=== PATIENT | female | born 1975 | race Caucasian/White ===

== ENCOUNTER 2023-04-02 23:21 | Inpatient (IN) | payer OTHER, SELFPAY ==
--- NOTE | 2023-04-02 23:30 | ED.GENADULT ---
HPI - General Adult General Chief complaint: Psychiatric Symptoms Stated complaint: Crisis Time Seen by Provider: 04/02/23 23:30 Source: patient and EMS Mode of arrival: EMS Limitations: no limitations History of Present Illness HPI narrative: Patient is a 47 year old assigned female at with a history of substance abuse presenting to the emergency department today with suicidal ideation. Patient states that she told her disaster recovery specialist she has been thinking of jumping off a building over the last few days. Patient admits to alcohol use and abusing cough medicines. Patient denies any dizziness, lightheadedness, abdominal pain, nausea, vomiting, fever, chills, blurry vision, double vision, loss of vision, chest pain, difficulty breathing, shortness of breath, back pain, night sweats, pain with urination, increased urinary frequency, increased urinary urgency, blood in her urine or stool, syncope or a near syncopal episode, recent trauma or falls, bowel incontinence, bladder incontinence, bowel retention, bladder retention, or any other complaints at this time. Onset (ago): day(s) (3) Relieving factors: none Exacerbating factors: none Associated symptoms: denies other symptoms Treatments prior to arrival: none Related Data Allergies Allergy/AdvReac Type Severity Reaction Status Date / Time paroxetine [From PAXIL] Allergy Severe visual Unverified 05/09/20 17:57 disturbance rofecoxib [From VIOXX] Allergy Severe hallucinati Unverified 05/09/20 17:57 ons omeprazole [OMEPRAZOLE] Allergy Intermediate stomach Unverified 05/09/20 17:57 distress cyclobenzaprine Allergy Unknown HALLUCINATI Unverified 05/09/20 17:57 [From FLEXERIL] ON latex [Latex] Allergy Unknown RASH Unverified 05/09/20 17:57 Review of Systems Constitutional: Constitutional: Reports no additional constitutional complaints, Denies chills, Denies fever(s) and Denies night sweats Eyes: Eyes: Reports no additional eye complaints, Denies blurry vision, Denies change in vision, Denies diplopia, Denies eye discharge, Denies loss of vision and Denies eye pain ENT: Denies dizziness Cardiovascular: Cardiovascular: Reports no additional cardiovascular complaints, Denies chest pain, Denies lightheadedness, Denies Loss of Consciousness and Denies dyspnea Respiratory: Respiratory: Reports no additional respiratory complaints and Denies dyspnea Gastrointestinal: Gastrointestinal: Reports no additional gastrointestinal complaints, Denies abdominal pain, Denies melena, Denies hematochezia, Denies change in bowel habits and Denies change in stool character Genitourinary: Genitourinary: Denies hematuria, Denies urinary frequency, Denies dysuria, Denies urinary incontinence, Denies urinary hesitancy and Denies urinary urgency Musculoskeletal: Musculoskeletal: Reports no additional musculoskeletal complaints, Denies numbness and Denies tingling Neurologic: Denies dizziness, Denies loss of vision, Denies numbness and Denies tingling Psychiatric: Psychiatric: Reports no additional psychiatric complaints, Denies homicidal ideation and Reports suicidal ideation Endocrine: Endocrine: Reports no additional endocrine complaints Hematologic/Lymphatic: Hematologic/Lymphatic: Reports no additional hematologic/lymphatic complaints Allergic/Immunologic: Allergic/Immunologic: Reports no additional allergic/immunologic complaints PMFSH Past Medical History Attestation statement: The following information was validated with the patient. Source: old records reviewed and nursing notes reviewed Medical History Restless leg syndrome Vertebral compression fracture Social History Social History Alcohol intake: current Alcohol intake frequency: a few times a month Alcohol type: hard liquor Smoked in Last 30 Days: Yes Use of substances other than those prescribed or required for medical reasons: Yes Substance Use Type: Other Substance Use Type Other:: Cough medicine Substance Use Frequency: Chronic Longstanding Last Used Substance: Just Prior to Admission Advance Directives: No Advance Directives Information Provided: Yes Physical Exam ED Vital Signs: Vital Signs - 24 hr 04/02/23 23:31 04/02/23 23:50 Pulse Rate 97 97 Respiratory Rate 17 17 Blood Pressure 130/84 130/84 Pulse Oximetry 95 95 Oxygen Delivery Method Room Air Room Air BMI result Body Mass Index 32.6 Const General: cooperative, no acute distress, alert and awake Nutritional Appearance: well nourished Orientation/consciousness: patient oriented x3 Limitations: no limitations HENMT Head: Yes normal to inspection and Yes atraumatic Ears: hearing grossly normal bilaterally and external ears normal General nose exam: Normal external nose present, no nasal discharge noted and no epistaxis Face and sinus: Yes normal facial exam, No abrasion and No laceration Mouth: Normal oral and palatal mucosa present, no drooling and no muffled voice Eyes General: appearance normal, both eyes and all related structures Periorbital: periorbital findings normal Eyelids: Yes eyelids normal Conjunctivae: conjunctivae normal Pupils: Equal, round and reactive pupils present EOM: EOMs intact bilaterally Neck Neck: Yes normal visual inspection, Yes full ROM and Yes no lymphadenopathy Chest Chest palpation & inspection: normal inspection of the chest Resp Effort & Inspection: normal respiratory effort and able to speak in complete sentences GI Inspection: Yes normal to inspection Neuro General: patient oriented x3 and moves all extremities Cranial nerves: Yes Equal, round and reactive pupils present Cognition (Neuro): normal cognition Motor exam (neuro): 5/5 motor strength present throughout Sensory Exam: Normal double simultaneous stimulation for sensation Coordination: [id number] test normal Extrem General: Yes normal to inspection, Yes full ROM and Yes capillary refill normal Psych Appearance: grossly normal Mental Status: mental status grossly normal Affect: normal affect Attitude: cooperative Thought process: Normal thought process present Thought content: Normal thought content present Insight: Good insight present (Psych) Course Course Course Narrative: 0239: Informed by RN that she contacted poison control who recommended that the patient be placed on a residential monitor given the cough medicine abuse and her personal history of seizures. Patient will be moved back to the main ED and attached to a residential monitor with a sitter. Patient still awaits CARE team evaluation. Medical Decision Making Medical Decision Making [facility] Narrative: Patient is a 47 year old assigned female at with a history of substance use presenting to the emergency department today with suicidal ideation. Patient's physical exam was unremarkable. Patient's blood work was unremarkable. Patient's urine showed no acute process. Patient's EKG was unremarkable. I explained my physical exam findings as well as all test results to the patient. I answered all questions asked by the patient. Given patient's SI statements, patient will need to be evaluated by the CARE team. Patient is medically cleared at this time. Differential Diagnosis Differential Diagnoses: The differential diagnosis associated with the presentation includes Suicidal Depression Admission/Observation Consideration of admission/observation: Escalation of care including admission/observation considered Patient's disposition will be determined after CARE team evaluates the patient. Lab Data [facility] Lab Attestation statement: I reviewed the patient's lab results. My interpretation of these studies and their corresponding values is that they are grossly normal. 04/03/23 00:06 04/03/23 00:06 Labs: Lab Results 04/02/23 04/02/23 04/02/23 Range/Units 23:43 23:43 23:43 WBC (4.8-10.8) X10*3/uL RBC (4.20-5.50) X10*6/uL Hgb (12.0-16.0) g/dl Hct (37.0-47.0) % MCV (80.0-98.0) fL MCH (27.0-33.0) pg MCHC (31.0-35.0) g/dl RDW (11.0-16.0) % Plt Count (160-400) X10*3/uL MPV (9.4-12.3) fL Immature Gran % (Auto) (0.0-0.4) % Neut % (Auto) (45-73) % Lymph % (Auto) (20-40) % [place] % (Auto) (2-11) % Eos % (Auto) (0-4) % Baso % (Auto) (0-2) % Lymph # (Auto) (1.2-4.9) X10*3/uL [place] # (Auto) (0.1-1.2) X10*3/uL Eos # (Auto) (0.0-0.4) X10*3/uL Baso # (Auto) (0.0-0.2) X10*3/uL Abs Immat Gran (auto) (0.00-0.03) X10*3/uL Absolute Neuts (auto) (2.0-8.3) x10*3/uL Absolute Nucleated RBC (0.0-0.012) X10*3/uL Nucleated RBC % (auto) (0.0-0.2) /100WBC Sodium (135-145) mmol/L Potassium (3.3-5.1) mmol/L Chloride (96-108) mmol/L Carbon Dioxide (22-29) mmol/L Anion Gap (12-20) BUN (9-16) mg/dL Creatinine (0.5-1.4) mg/dL Estim Creat Clear Calc Estimated GFR Random Glucose (60-115) mg/dL Calcium (8.4-10.2) mg/dL Total Bilirubin (0.0-1.0) mg/dL AST (5-31) U/L ALT (0-31) U/L Alkaline Phosphatase (39-117) U/L Total Protein (6.5-8.0) g/dL Albumin (3.5-5.0) g/dL Urine Color Yellow Urine Appearance Clear Urine pH 5.5 (5.0-9.0) Ur Specific Hughson <= 1.005 (1.005-1.025) Urine Protein Negative (Neg-Trace) mg/dL Urine Glucose (UA) Negative (Negative) mg/dL Urine Ketones Negative (Negative) mg/dL Urine Blood Small (1+) H (Negative) Urine Nitrite Negative (Negative) Ur Leukocyte Esterase Trace H (Negative) Urine RBC 0-2 (0-2) /HPF Urine WBC 0-5 (0-5) /HPF Ur Squamous Epith Cells 3-5 (0-2) /HPF Urine Bacteria None Seen (None Seen) Hyaline Casts 0-2 (0-2) /LPF Urine Test NEGATIVE (NEGATIVE) Salicylates (15-30) mg/dL Urine Opiates Screen (Not Detect) Urine Fentanyl Screen (Not Detect) Acetaminophen (<30) mcg/mL Ur Barbiturates Screen (Not Detect) Ur Phencyclidine Scrn (Not Detect) Ur Amphetamines Screen (Not Detect) U Benzodiazepines Scrn (Not Detect) Urine Cocaine Screen (Not Detect) U Marijuana (THC) Screen (Not Detect) Ethyl Alcohol mg/dL COVID-19 (TEN) Negative (Negative) COVID-19 Clin Com See Note 04/02/23 04/03/23 04/03/23 Range/Units 23:43 00:06 00:06 WBC 10.4 (4.8-10.8) X10*3/uL RBC 4.54 (4.20-5.50) X10*6/uL Hgb 13.7 (12.0-16.0) g/dl Hct 40.4 (37.0-47.0) % MCV 89.0 (80.0-98.0) fL MCH 30.2 (27.0-33.0) pg MCHC 33.9 (31.0-35.0) g/dl RDW 13.4 (11.0-16.0) % Plt Count 333 (160-400) X10*3/uL MPV 9.7 (9.4-12.3) fL Immature Gran % (Auto) 0.3 (0.0-0.4) % Neut % (Auto) 48.5 (45-73) % Lymph % (Auto) 41.4 H (20-40) % [place] % (Auto) 7.5 (2-11) % Eos % (Auto) 1.6 (0-4) % Baso % (Auto) 0.7 (0-2) % Lymph # (Auto) 4.3 (1.2-4.9) X10*3/uL [place] # (Auto) 0.8 (0.1-1.2) X10*3/uL Eos # (Auto) 0.2 (0.0-0.4) X10*3/uL Baso # (Auto) 0.1 (0.0-0.2) X10*3/uL Abs Immat Gran (auto) 0.03 (0.00-0.03) X10*3/uL Absolute Neuts (auto) 5.0 (2.0-8.3) x10*3/uL Absolute Nucleated RBC 0.000 (0.0-0.012) X10*3/uL Nucleated RBC % (auto) 0.0 (0.0-0.2) /100WBC Sodium 140 (135-145) mmol/L Potassium 3.5 (3.3-5.1) mmol/L Chloride 111 H (96-108) mmol/L Carbon Dioxide 20 L (22-29) mmol/L Anion Gap 13 (12-20) BUN 13 (9-16) mg/dL Creatinine 1.07 (0.5-1.4) mg/dL Estim Creat Clear Calc 67.9 Estimated GFR 55 Random Glucose 97 (60-115) mg/dL Calcium 9.0 (8.4-10.2) mg/dL Total Bilirubin 0.2 (0.0-1.0) mg/dL AST 19 (5-31) U/L ALT 16 (0-31) U/L Alkaline Phosphatase 103 (39-117) U/L Total Protein 7.5 (6.5-8.0) g/dL Albumin 4.3 (3.5-5.0) g/dL Urine Color Urine Appearance Urine pH (5.0-9.0) Ur Specific Hughson (1.005-1.025) Urine Protein (Neg-Trace) mg/dL Urine Glucose (UA) (Negative) mg/dL Urine Ketones (Negative) mg/dL Urine Blood (Negative) Urine Nitrite (Negative) Ur Leukocyte Esterase (Negative) Urine RBC (0-2) /HPF Urine WBC (0-5) /HPF Ur Squamous Epith Cells (0-2) /HPF Urine Bacteria (None Seen) Hyaline Casts (0-2) /LPF Urine Test (NEGATIVE) Salicylates (15-30) mg/dL Urine Opiates Screen POSITIVE H (Not Detect) Urine Fentanyl Screen Not Detected (Not Detect) Acetaminophen (<30) mcg/mL Ur Barbiturates Screen Not Detected (Not Detect) Ur Phencyclidine Scrn Not Detected (Not Detect) Ur Amphetamines Screen Not Detected (Not Detect) U Benzodiazepines Scrn Not Detected (Not Detect) Urine Cocaine Screen Not Detected (Not Detect) U Marijuana (THC) Screen POSITIVE H (Not Detect) Ethyl Alcohol 29 mg/dL COVID-19 (TEN) (Negative) COVID-19 Clin Com 04/03/23 Range/Units 00:06 WBC (4.8-10.8) X10*3/uL RBC (4.20-5.50) X10*6/uL Hgb (12.0-16.0) g/dl Hct (37.0-47.0) % MCV (80.0-98.0) fL MCH (27.0-33.0) pg MCHC (31.0-35.0) g/dl RDW (11.0-16.0) % Plt Count (160-400) X10*3/uL MPV (9.4-12.3) fL Immature Gran % (Auto) (0.0-0.4) % Neut % (Auto) (45-73) % Lymph % (Auto) (20-40) % [place] % (Auto) (2-11) % Eos % (Auto) (0-4) % Baso % (Auto) (0-2) % Lymph # (Auto) (1.2-4.9) X10*3/uL [place] # (Auto) (0.1-1.2) X10*3/uL Eos # (Auto) (0.0-0.4) X10*3/uL Baso # (Auto) (0.0-0.2) X10*3/uL Abs Immat Gran (auto) (0.00-0.03) X10*3/uL Absolute Neuts (auto) (2.0-8.3) x10*3/uL Absolute Nucleated RBC (0.0-0.012) X10*3/uL Nucleated RBC % (auto) (0.0-0.2) /100WBC Sodium (135-145) mmol/L Potassium (3.3-5.1) mmol/L Chloride (96-108) mmol/L Carbon Dioxide (22-29) mmol/L Anion Gap (12-20) BUN (9-16) mg/dL Creatinine (0.5-1.4) mg/dL Estim Creat Clear Calc Estimated GFR Random Glucose (60-115) mg/dL Calcium (8.4-10.2) mg/dL Total Bilirubin (0.0-1.0) mg/dL AST (5-31) U/L ALT (0-31) U/L Alkaline Phosphatase (39-117) U/L Total Protein (6.5-8.0) g/dL Albumin (3.5-5.0) g/dL Urine Color Urine Appearance Urine pH (5.0-9.0) Ur Specific Hugh[place] (1.005-1.025) Urine Protein (Neg-Trace) mg/dL Urine Glucose (UA) (Negative) mg/dL Urine Ketones (Negative) mg/dL Urine Blood (Negative) Urine Nitrite (Negative) Ur Leukocyte Esterase (Negative) Urine RBC (0-2) /HPF Urine WBC (0-5) /HPF Ur Squamous Epith Cells (0-2) /HPF Urine Bacteria (None Seen) Hyaline Casts (0-2) /LPF Urine Test (NEGATIVE) Salicylates < 5.0 L (15-30) mg/dL Urine Opiates Screen (Not Detect) Urine Fentanyl Screen (Not Detect) Acetaminophen < 17 (<30) mcg/mL Ur Barbiturates Screen (Not Detect) Ur Phencyclidine Scrn (Not Detect) Ur Amphetamines Screen (Not Detect) U Benzodiazepines Scrn (Not Detect) Urine Cocaine Screen (Not Detect) U Marijuana (THC) Screen (Not Detect) Ethyl Alcohol mg/dL COVID-19 (TEN) (Negative) COVID-19 Clin Com Independent Interpretation I performed an independent interpretation of an: EKG Interpretation: Vent. Rate : 106 BPM ? ? Atrial Rate : 106 BPM ?? P-R Int : 168 ms? QRS Dur : 088 ms ? ? QT Int : 374 ms ? ? ? P-R-T Axes : 054 086 015 degrees ?? QTc Int : 496 ms ? Sinus tachycardia T wave abnormality, consider inferior ischemia Abnormal ECG When compared with ECG of 03-JUL-2019 15:32, T wave inversion now evident in Inferior leads DD/ 0015 Independent Historian Clinical information obtained from an independent historian. History obtained from or confirmed by: EMS (EMS provided additional history and confirmed the history provided by the patient.) Critical Care Time Critical Care Time Critical Care Time: Yes Total Critical Care Time: 40 Attestation: I spent 40 minutes of Critical Care Time with this patient. This does not include time spent on separately reported billable procedures. Discharge Plan Discharge Clinical Impression: Suicidal ideation Patient Disposition: Still a Patient Interventions: Polk-Suicide Risk Severity Scale Last Done: 04/02/23 23:41
[2023-04-02 23:31] VITALS: BP 130/84; BP 145/86; PULSE 105; PULSE 97; RESP 17; O2SAT 95; O2SAT 98; BMI 32.6
--- NOTE | 2023-04-02 23:37 | ECG_ITS ---
Test Reason : MED CLEARANCE Blood Pressure : / mmHG Vent. Rate : 106 BPM Atrial Rate : 106 BPM P-R Int : 168 ms QRS Dur : 088 ms QT Int : 374 ms P-R-T Axes : 054 086 015 degrees QTc Int : 496 ms Sinus tachycardia T wave abnormality, consider inferior ischemia Abnormal ECG When compared with ECG of 03-JUL-2019 15:32, T wave inversion now evident in Inferior leads Referred By: Allyson Aguilera Electronically Signed By:Aneesh Espinoza
[2023-04-02 23:50] VITALS: BP 130/84; PULSE 97; RESP 17; O2SAT 95
[2023-04-02 23:55] LABS: Appearance Urine Clear; Color Urine Yellow; Glucose Urine UA Negative (Negative); Leukocyte Esterase Urine Trace (Negative); Nitrite Urine Negative (Negative); PH 5.5 (5.0-9.0); Specific Gravity - Urine <= 1.005 (1.005-1.025); UMIC TRIGGER UA YES; Urine Blood Small (1+) (Negative); Urine Ketones Negative (Negative); Urine Protein Negative (Neg-Trace)
--- NOTE | 2023-04-02 23:55 | PC.NURSE ---
Pt BIBA alert and oriented x3. States she reported SI with plan recovery coordinator and now is reporting HI as well. longstanding chronic use of cough suppressants, currently is in treatment through a program at [facility]. Pt states she consumed 4 1/2 boxes of dexmethrophan over the day. Pt changed over in the hospital attire, belongings checked and secured in pod locker, 15 minutes checks initiated. Labs drawn, ekg completed. vital signs stable. Patient oriented to milieu resting quietly in bed 7 area.
[2023-04-02 23:56] LABS: UPreg QC Valid YES; Urine Pregnancy NEGATIVE (NEGATIVE)
[2023-04-03 00:03] LABS: Amphetamine Screen Urine Not Detected (Not Detect); Barbiturates, Urine Not Detected (Not Detect); Benzodiazepines Screen Urine Not Detected (Not Detect); Cannabinoid Screen Urine POSITIVE (Not Detect); Cocaine Screen Urine Not Detected (Not Detect); Fentanyl, urine Not Detected (Not Detect); Opiate Screen Urine POSITIVE (Not Detect); Phencyclidine Screen Urine Not Detected (Not Detect)
[2023-04-03 00:08] LABS: Bacteria Urine None Seen (None Seen); Hyaline Casts Urine 0-2 /LPF (0-2); RBC Urine 0-2 /HPF (0-2); WBC Urine 0-5 /HPF (0-5)
[2023-04-03 00:13] LABS: MANUAL DIFF FLAG NO
--- OUTSIDE RECORDS SUMMARY | 2023-04-03 00:13 | XMS_ITS | Continuity of Care Document ---
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 Date(s): 08/12/21 - 08/13/[address] [address]- Discharge Disposition: Transfer to [facility] Facility Attending Physician: Madhu Frazier MD Admitting Physician: Madhu Frazier MD Referring Physician: Not on Staff, Referring MD Allergies, Adverse Reactions, Alerts Substance Reaction Severity Status Flexeril Active Vioxx Active Latex Active Other Food Allergy 1 Active 1green pepper Immunizations Not Given Vaccine Date Status Refusal Reason pneumococcal 23-valent vaccine 08/11/14 Not Given Patient Refuses influenza virus vaccine, inactivated 08/11/14 Not Given Patient Refuses Medications Advair Diskus 100 mcg-50 mcg inhalation powder 1, puffs, Inhalation, 2 times a day, # 1 kit, Refills 0, Tot. Refills 0, Maintenance, 07/28/21 11:11:00 EST, Inhaler, Route to Pharmacy Electronically, [id number], [email or web address] ([facility]), 152, cm, 07/28/21 8:23:00 E... Start Date: 07/28/21 Status: Ordered gabapentin 300 mg oral capsule 300 mg, 1, capsule, By Mouth, 3 times a day, # 90 capsule, Refills 0, Tot. Refills 0, Maintenance, 07/28/21 11:12:00 EST, Route to Pharmacy Electronically, [facility] [id number] ([facility]), Partial fill upon patient request if the prescription is for... Start Date: 07/28/21 Status: Ordered gabapentin 300 mg oral capsule 300 mg, Capsule, By Mouth, 08/12/21 21:00:00 EST Start Date: 08/12/21 Stop Date: 08/12/21 Status: Completed gabapentin 300 mg oral capsule 300 mg, Capsule, By Mouth, 08/13/21 9:00:00 EST Start Date: 08/13/21 Stop Date: 08/13/21 Status: Completed lamotrigine 25 mg oral tablet 25 mg, 1, tablet, By Mouth, Daily at bedtime, # 30 tablet, Refills 0, Tot. Refills 0, Maintenance, 07/28/21 11:12:00 EST, Route to Pharmacy Electronically, [email or web address] ([facility]), Partial fill upon patient request if the prescription is for... Start Date: 07/28/21 Status: Ordered LORazepam 1 mg oral tablet 1 tablet = 1 mg, By Mouth, Daily, PRN as needed for anxiety, # 14 tablet, 0 Refills, Maintenance, 07/28/21 11:12:00 EST, Tablet, [facility] [id number] ([facility]), Partial fill upon patient request ifthe prescription is for a schedule II opioid drug.,... Start Date: 07/28/21 Status: Ordered montelukast 10 mg oral tablet 10 mg, 1, tablet, By Mouth, Daily, # 30 tablet, Refills 0, Tot. Refills 0, Maintenance, 07/28/21 11:12:00 EST, Route to Pharmacy Electronically, [email or web address] ([facility]), Partial fill upon patient request if the prescription is for a schedule... Start Date: 07/28/21 Status: Ordered olanzapine 10 mg oral tablet 5 mg, 0.5, tablet, By Mouth, Daily, # 15 tablet, Refills 0, Tot. Refills 0, Maintenance, 07/28/21 13:57:00 EST, Route to Pharmacy Electronically, [facility] [id number] ([facility]), Partial fill upon patient request if the prescription is for a schedule... Start Date: 07/28/21 Status: Ordered propranolol 20 mg oral tablet 20 mg, 1, tablet, By Mouth, 3 times a day, # 90 tablet, Refills 0, Tot. Refills 0, Maintenance, 07/28/21 11:12:00 EST, Route to Pharmacy Electronically, [facility] [id number] ([facility]), Partial fillupon patient request if the prescription is for a s... Start Date: 07/28/21 Status: Ordered propranolol 20 mg oral tablet 20 mg, Tablet, By Mouth, 08/13/21 9:00:00 EST Start Date: 08/13/21 Stop Date: 08/13/21 Status: Completed Vitamin D3 1000 intl units oral tablet, chewable 1 tablet = 25 mcg, Chew, Daily, # 30 tablet, 0 Refills, Maintenance, 07/28/21 11:11:00 EST, Chew Tablet, [facility] [id number] ([facility]), Partial fill upon patient request if the prescription is fora schedule II opioid drug., 152, cm, 07/28/21 8:23:... Start Date: 07/28/21 Status: Ordered Problem List Condition Effective Dates Status Health Status Inform ant Vertebral compression fracture(Confirmed) 1 Active Obese class II(Confirmed) Active Restless leg syndrome(Confirmed) Active Urinary retention(Confirmed) Active 1T 7 and T12 traumatic Vital Signs Most recent to oldest [Reference Range]: 1 2 3 Height 158 cm (08/12/21 8:59 PM) 158 cm (08/12/21 5:28 PM) 158 cm (08/12/21 2:27 PM) Weight 94 kg (08/12/21 8:59 PM) 94 kg (08/12/21 5:28 PM) 94 kg (08/12/21 2:27 PM) Oxygen Saturation [94-100 %] 97 % (08/12/21 8:59 PM) 100 % (08/12/21 5:28 PM) 98 % (08/12/21 2:27 PM) Pulse Rate [55-90 bpm] 93 bpm *H* (08/13/21 8:51 AM) 97 bpm *H* (08/12/21 8:59 PM) 89 bpm (08/12/21 5:28 PM) Body Mass Index [18.5-24.99] 37.65 *>HHI* (08/12/21 8:59 PM) 37.65 *>HHI* (08/12/21 5:28 PM) Blood Pressure [90-138/55-84 mm Hg] 128/90mm Hg (08/13/21 8:51 AM) 126/84mm Hg (08/12/21 8:59 PM) 144/92mm Hg *H* (08/12/21 5:28 PM) Respiratory Rate [16-30 br/min] 16 br/min (08/13/21 8:50 AM) 16 br/min (08/12/21 9:52 PM) 18 br/min (08/12/21 8:52 PM) Temperature [96.8-100.4 DegF] 98.2 DegF (08/13/21 8:51 AM) 97.6 DegF (08/12/21 8:59 PM) 98.8 DegF (08/12/21 5:28 PM) Mode of Delivery (Oxygen) Room air (08/12/21 5:28 PM) Room air (08/12/21 2:27 PM) Blood pressure sites Arm, left (08/12/21 5:28 PM) Arm, right (08/12/21 2:27 PM) Temperature Route Oral (08/12/21 8:59 PM) Oral (08/12/21 5:28 PM) Oral (08/12/21 2:27 PM) Dry Weight 94 kg (08/12/21 8:59 PM) 94 kg (08/12/21 5:28 PM) 94 kg (08/12/21 2:27 PM) Weight Obtained Via Patient/family state d (08/12/21 2:27 PM) Dry Weight Obtained Via Patient/family s tated (08/12/21 2:27 PM) Social History Social History Type Response Smoking Status Former smoker entered on: 08/10/14 Sex
--- OUTSIDE RECORDS SUMMARY | 2023-04-03 00:13 | XMS_ITS | Continuity of Care Document ---
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 Start Date: 07/28/21 Status: Ordered gabapentin 100 mg oral capsule 300 mg, Capsule, By Mouth, 07/28/21 9:00:00 EST Start Date: 07/28/21 Stop Date: 07/28/21 Status: Completed gabapentin 100 mg oral capsule 300 mg, Capsule, By Mouth, 07/28/21 15:00:00 EST Start Date: 07/28/21 Stop Date: 07/28/21 Status: Completed gabapentin 300 mg oral capsule 300 mg, 1, capsule, By Mouth, 3 times a day, # 90 capsule, Refills 0, Tot. Refills 0, Maintenance, 07/28/21 11:12:00 EST, Route to Pharmacy Electronically, [facility] ([place]), Partial fill upon patient request if the prescription is for... Start Date: 07/28/21 Status: Ordered lamotrigine 25 mg oral tablet 25 mg, 1, tablet, By Mouth, Daily at bedtime, # 30 tablet, Refills 0, Tot. Refills 0, Maintenance, 07/28/21 11:12:00 EST, Route to Pharmacy Electronically, [facility] ([place]), Partial fill upon patient request if the prescription is for... Start Date: 07/28/21 Status: Ordered LORazepam 1 mg oral tablet 1 tablet = 1 mg, By Mouth, Daily, PRN as needed for anxiety, # 14 tablet, 0 Refills, Maintenance, 07/28/21 11:12:00 EST, Tablet, [facility] [id number] ([place]), Partial fill upon patient request ifthe prescription is for a schedule II opioid drug.,... Start Date: 07/28/21 Status: Ordered montelukast 10 mg oral tablet 10 mg, 1, tablet, By Mouth, Daily, # 30 tablet, Refills 0, Tot. Refills 0, Maintenance, 07/28/21 11:12:00 EST, Route to Pharmacy Electronically, [facility] [id number] ([place]), Partial fill upon patient request if the prescription is for a schedule... Start Date: 07/28/21 Status: Ordered olanzapine 10 mg oral tablet 5 mg, 0.5, tablet, By Mouth, Daily, # 15 tablet, Refills 0, Tot. Refills 0, Maintenance, 07/28/21 13:57:00 EST, Route to Pharmacy Electronically, [facility] [id number] ([place]), Partial fill upon patient request if the prescription is for a schedule... Start Date: 07/28/21 Status: Ordered propranolol 20 mg oral tablet 20 mg, 1, tablet, By Mouth, 3 times a day, # 90 tablet, Refills 0, Tot. Refills 0, Maintenance, 07/28/21 11:12:00 EST, Route to Pharmacy Electronically, [facility] [id number] ([place]), Partial fillupon patient request if the prescription is for a s... Start Date: 07/28/21 Status: Ordered propranolol 20 mg oral tablet 20 mg, Tablet, By Mouth, 07/27/21 21:00:00 EST Start Date: 07/27/21 Stop Date: 07/27/21 Status: Completed propranolol 20 mg oral tablet 20 mg, Tablet, By Mouth, 07/28/21 15:00:00 EST Start Date: 07/28/21 Stop Date: 07/28/21 Status: Completed Vitamin D3 1000 intl units oral tablet, chewable 1 tablet = 25 mcg, Chew, Daily, # 30 tablet, 0 Refills, Maintenance, 07/28/21 11:11:00 EST, Chew Tablet, [facility] [id number] ([place]), Partial fill upon patient request if the [...] oldest [Reference Range]: 1 2 3 Height 152 cm (07/28/21 8:23 AM) 152 cm (07/27/21 6:19 PM) 152 cm (07/27/21 8:53 AM) Weight 93.4 kg (07/25/21 3:07 PM) 89.5 kg (07/18/21 2:17 PM) 88.2 kg (07/17/21 4:22 PM) Oxygen Saturation [94-100 %] 98 % (07/28/21 8:23 AM) 98 % (07/27/21 6:19 PM) 99 % (07/27/21 8:53 AM) Pulse Rate [55-90 bpm] 105 bpm *H* (07/28/21 3:00 PM) 99 bpm *H* (07/28/21 8:23 AM) 83 bpm (07/27/21 9:59 PM) Body Mass Index [18.5-24.99] 38.74 *>HHI* (07/18/21 2:17 PM) 38.18 *>HHI* (07/17/21 4:22 PM) 38.18 *>HHI* (07/17/21 8:54 AM) Blood Pressure [90-138/55-84 mm Hg] 136/90mm Hg (07/28/21 3:00 PM) 129/89mm Hg (07/28/21 8:23 AM) 105/76mm Hg (07/27/21 9:59 PM) Respiratory Rate [16-30 br/min] 16 br/min (07/28/21 3:00 PM) 18 br/min (07/28/21 8:46 AM) 18 br/min (07/28/21 8:28 AM) Temperature [96.8-100.4 DegF] 96.6 DegF *L* (07/28/21 8:23 AM) 96.8 DegF (07/27/21 6:19 PM) 97.3 DegF (07/27/21 8:53 AM) Mode of Delivery (Oxygen) Room air (07/28/21 8:23 AM) Room air (07/27/21 6:19 PM) Room air (07/27/21 8:53 AM) Blood pressure sites Arm, left (07/28/21 8:23 AM) Arm, right (07/27/21 6:19 PM) Arm, left (07/27/21 8:53 AM) Temperature Route Temporal (07/28/21 8:23 AM) Temporal (07/27/21 6:19 PM) Temporal (07/27/21 8:53 AM) Dry Weight 89.5 kg (07/18/21 2:17 PM) 88.2 kg (07/17/21 4:22 PM) 88.2 kg (07/17/21 8:54 AM) Weight Obtained Via Standing scale (07/25/21 3:07 PM) Standing scale (07/16/21 2:02 PM) Sensory deficits None (07/18/21 2:17 PM) Social History Social History Type Response Smoking Status Former smoker entered on: 08/10/14 Sex
[2023-04-03 00:15] LABS: COVID-19 Test Negative (Negative); IDNOW Serial# 6674DD1D
[2023-04-03 00:15] LABS: Basophils Absolute Auto 0.1 X10*3/uL (0.0-0.2); Basophils Percent Auto 0.7 % (0-2); Eosinophils Absolute Auto 0.2 X10*3/uL (0.0-0.4); Eosinophils Percent Auto 1.6 % (0-4); Hematocrit 40.4 % (37.0-47.0); Hemoglobin 13.7 g/dl (12.0-16.0); Imm Gran Abs Auto 0.03 X10*3/uL (0.00-0.03); Imm Gran Pct Auto 0.3 % (0.0-0.4); Lymphocytes Absolute Auto 4.3 X10*3/uL (1.2-4.9); Lymphocytes Percent Auto 41.4 % (20-40); Mean Corpuscular HGB Conc 33.9 g/dl (31.0-35.0); Mean Corpuscular Hemoglobin 30.2 pg (27.0-33.0); Mean Platelet Volume 9.7 fL (9.4-12.3); Monocytes Absolute Auto 0.8 X10*3/uL (0.1-1.2); Monocytes Percent Auto 7.5 % (2-11); Neutrophils Percent Auto 48.5 % (45-73); Platelet Count 333 X10*3/uL (160-400); Red Blood Count 4.54 X10*6/uL (4.20-5.50); Red Cell Distribution Width 13.4 % (11.0-16.0); White Blood Count 10.4 X10*3/uL (4.8-10.8)
[2023-04-03 00:33] LABS: Acetaminophen LAB < 17 mcg/mL (<30); Salicylate < 5.0 mg/dL (15-30)
[2023-04-03 00:35] LABS: Alanine Aminotransferase 16 U/L (0-31); Albumin Level 4.3 g/dL (3.5-5.0); Alkaline Phosphatase 103 U/L (39-117); Anion Gap 13 (12-20); Aspartate Amino Transferase 19 U/L (5-31); Bilirubin Total 0.2 mg/dL (0.0-1.0); Blood Urea Nitrogen 13 mg/dL (9-16); Carbon Dioxide 20 mmol/L (22-29); Chloride 111 mmol/L (96-108); Creatinine Clr Calc Pharmacy 67.9; Estimated Glomerular Filt Rate 55; Ethanol 29 mg/dL; Glucose Random 97 mg/dL (60-115); Potassium 3.5 mmol/L (3.3-5.1); Sodium 140 mmol/L (135-145); Total Protein 7.5 g/dL (6.5-8.0)
--- NOTE | 2023-04-03 01:30 | PC.NURSE ---
Patient reporting she doesn't feel well. states although she is a chronic cough suppressant user, she does not feel that same today and endorsing severe JIMENEZ and states history of grand mal seizures. PT mental status differs from when pt first arrived ,pupil moderately dilated, falling asleep mid conversation and unsteady on feet during walk to bed 5, pt slide to ground multiple and pt lacking depth perception. Pt breathing normally and in no acute distress.
--- NOTE | 2023-04-03 02:25 | MHC.CARE ---
Pt is currently uninterviewable. Care team will assess her in the morning.
--- NOTE | 2023-04-03 02:41 | PC.NURSE ---
Discussed case with poison control staff, Ayana, she recommends to closely monitor pt and allow her to sleep off the cough suppressant intake- if she back to baseline in the morning she can be cleared. If pt starts to get severely agitation or seizure activity administer, fluids and give benzos. Ayana recommended that the PT be kept on key bed installer and implement seizure precautions. Provider aware of recommendations and charge nurse notified.
[2023-04-03 03:39] VITALS: BP 114/70; PULSE 88; O2SAT 97
--- NOTE | 2023-04-03 06:21 | PC.NURSE ---
Spoke with Ayana from poison control. Pt SR in 80's, A & O x3. cleared to go back to pod.
--- NOTE | 2023-04-03 08:11 | PHA.MEDREC ---
Pharmacy Consult ? Medication Reconciliation Pharmacy has completed the medication reconciliation. Spoke to patient to confirm meds.
--- NOTE | 2023-04-03 10:26 | MHC.EDTECH ---
Patient belongings are in the washer/dryer closet. SG
[2023-04-03] MEDS: Nicotine 21 MG PATCH.TD24 TRANSDERMA (12:01)
[2023-04-03 17:04] VITALS: BP 107/72; PULSE 76; RESP 18; TEMP 36.1; O2SAT 95
--- NOTE | 2023-04-03 18:14 | PC.NURSE ---
PT'S SALES ACCOUNT EXECUTIVE (AVIS LOPEZ [phone]) CALLED AND LEFT HIS NUMBER.
--- NOTE | 2023-04-03 23:35 | PC.NURSE ---
Pt ambulated with steady gait to the restroom. Plan of care ongoing.
[2023-04-04 11:39] VITALS: BP 127/90; PULSE 97; RESP 19; TEMP 36.4; O2SAT 98
[2023-04-04] MEDS: Loratadine 10 MG TABLET PO (12:19)
[2023-04-04] MEDS: LORazepam 1 MG TABLET PO (12:19)
[2023-04-04] MEDS: Topiramate 25 MG TABLET PO (12:19)
[2023-04-04] MEDS: Gabapentin 300 MG CAPSULE PO (12:19)
[2023-04-04] MEDS: DULoxetine HCl 60 MG CAPSULE.DR PO (12:19)
[2023-04-04] MEDS: Propranolol HCL 20 MG TABLET PO ×2 (12:19→20:30)
[2023-04-04] MEDS: Dicyclomine HCl 10 MG CAPSULE 20 MG PO ×3 (12:19→20:30)
[2023-04-04] MEDS: Nicotine Polacrilex 2 MG GUM BUCCAL (12:54)
--- NOTE | 2023-04-04 15:10 | MHC.CARE ---
RAD team conducted an [facility] bed search but unfortunately the facilities that had beds available would not give a definitive answer on her referral being reviewed. Her bed search is now exhausted. RAD will follow up in the morning to confirm acceptance to M3 pending a female discharge on the unit.
--- NOTE | 2023-04-04 19:57 | PC.NURSE ---
assumed care of patient at 1900 pt resting comfortably on stretcher in no apparent distress. will ctm
[2023-04-04] MEDS: Gabapentin 400 MG CAPSULE PO (20:31)
[2023-04-04 20:34] VITALS: BP 115/85; PULSE 85; RESP 16; TEMP 36.6; O2SAT 97
--- NOTE | 2023-04-04 20:35 | PC.NURSE ---
pt took home bed time medications with no issues. sleeping comfortably on stretcher in no apparent distress will ctm . needs met and pt offers no current complaints.
[2023-04-05 05:52] VITALS: BP 117/84; PULSE 80; RESP 17; TEMP 36.6; O2SAT 97
[2023-04-05] MEDS: Dicyclomine HCl 10 MG CAPSULE 20 MG PO ×4 (10:38→21:15)
[2023-04-05] MEDS: Gabapentin 300 MG CAPSULE PO (10:39)
[2023-04-05] MEDS: DULoxetine HCl 60 MG CAPSULE.DR PO (10:39)
[2023-04-05] MEDS: Topiramate 25 MG TABLET PO (10:39)
[2023-04-05] MEDS: LORazepam 1 MG TABLET PO (10:39)
[2023-04-05] MEDS: Loratadine 10 MG TABLET PO (10:39)
[2023-04-05] MEDS: Propranolol HCL 20 MG TABLET PO ×2 (10:39→21:17)
[2023-04-05] MEDS: Cholecalciferol (Vitamin D3) 25 MCG TABLET PO (10:40)
[2023-04-05 10:47] VITALS: BP 105/81; PULSE 75; RESP 16; O2SAT 98
[2023-04-05] MEDS: Nicotine Polacrilex 2 MG GUM BUCCAL (14:04)
[2023-04-05 16:03] VITALS: BP 137/98; PULSE 78; RESP 17; TEMP 36.3; O2SAT 96
--- NOTE | 2023-04-05 18:47 | PC.ADMIT ---
Patient is an alert and oriented 47yo female who was admitted from our ED where she was evaluated after she overdosed on a large amount of Dextromethorphan and had called her motor coach tour operator and made suicidal statements. Patient reports recent suicidal ideation with a plan to jump off of a parking garage. Patient reported that she got as far as leaving her home a week ago for the bus to go jump off the garage after writing a suicide note. Patient states history of significant suicide attempts, and reports feeling concerned now because her suicidal ideation is different than previously. She states that the SI comes in waves that are intense and that she doesn't feel as though she has associated depression. Patient denies depression (0/10) and complains of anxiety (4/10) which she states is baseline, pt denies current si, hi, or avh and believes she would be able to communicate with staff if she felt unsafe. Patient states that she has tried many times to go to rehab for her abuse of OTC medication but has been unable to find a facility that will take her.
[2023-04-05 20:05] VITALS: BP 108/65; PULSE 72; RESP 16; TEMP 36.6; O2SAT 98
[2023-04-05] MEDS: Gabapentin 400 MG CAPSULE PO (21:16)
[2023-04-05] MEDS: modafiniL 100 MG TABLET 200 MG PO (21:16)
[2023-04-06 09:17] LABS: Estimated Average Glucose 105 mg/dL; Hemoglobin A1c % 5.3 %
[2023-04-06 09:56] LABS: Alanine Aminotransferase 12 U/L (0-31); Albumin Level 3.6 g/dL (3.5-5.0); Alkaline Phosphatase 104 U/L (39-117); Anion Gap 11 (12-20); Aspartate Amino Transferase 11 U/L (5-31); Bilirubin Total 0.1 mg/dL (0.0-1.0); Blood Urea Nitrogen 17 mg/dL (9-16); Calcium 9.3 mg/dL (8.4-10.2); Carbon Dioxide 24 mmol/L (22-29); Chloride 107 mmol/L (96-108); Cholesterol 228 mg/dL; Creatinine Clr Calc Pharmacy 88.7; Estimated Glomerular Filt Rate > 60; Glucose Fasting 120 mg/dL (60-99); HDL Cholesterol 39 mg/dL; LDL Cholesterol Calculated 126 mg/dl; Potassium 4.1 mmol/L (3.3-5.1); Sodium 138 mmol/L (135-145); Total Protein 6.5 g/dL (6.5-8.0); Triglycerides 319 mg/dL
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
[2023-04-06 10:16] LABS: Folate 8.7 ng/mL (> or = 4.0); Free T4 (Free Thyroxine) 0.76 ng/dL (0.71-1.85); Thyroid Stimulating Hormone 1.19 uIU/mL (0.32-4.0); Vitamin B12 312 pg/mL (200-900)
[2023-04-06] MEDS: Cholecalciferol (Vitamin D3) 25 MCG TABLET PO (10:30)
[2023-04-06] MEDS: Topiramate 25 MG TABLET PO (10:30)
[2023-04-06] MEDS: Dicyclomine HCl 10 MG CAPSULE 20 MG PO (10:30)
[2023-04-06] MEDS: DULoxetine HCl 60 MG CAPSULE.DR PO (10:30)
[2023-04-06] MEDS: Loratadine 10 MG TABLET PO (10:30)
[2023-04-06] MEDS: Gabapentin 300 MG CAPSULE PO (10:30)
[2023-04-06] MEDS: Propranolol HCL 20 MG TABLET PO ×2 (10:30→21:44)
[2023-04-06] MEDS: modafiniL 100 MG TABLET 200 MG PO ×2 (10:30→21:44)
[2023-04-06 11:21] VITALS: BP 111/68; PULSE 69; RESP 20; TEMP 36.7; O2SAT 99
[2023-04-06] MEDS: Fluticasone/Vilanterol 100/25 BLST.W.DEV 1 PUFF INHALE (11:44)
[2023-04-06] MEDS: Fluticasone Propionate Nasal 16 GM SPRAY 2 SPRAY NOSTRIL-B (11:44)
[2023-04-06] MEDS: Acetaminophen 325 MG TABLET 650 MG PO (19:32)
[2023-04-06] MEDS: Nicotine Polacrilex 2 MG GUM BUCCAL (19:33)
[2023-04-06 21:44] VITALS: BP 119/77; PULSE 92; RESP 16; TEMP 36.2; O2SAT 99
[2023-04-06] MEDS: Gabapentin 400 MG CAPSULE PO (21:44)
[2023-04-07] MEDS: Loratadine 10 MG TABLET PO (08:49)
[2023-04-07] MEDS: modafiniL 100 MG TABLET 200 MG PO ×2 (08:49→20:51)
[2023-04-07] MEDS: Propranolol HCL 20 MG TABLET PO ×2 (08:50→20:51)
[2023-04-07] MEDS: Cholecalciferol (Vitamin D3) 25 MCG TABLET PO (08:50)
[2023-04-07] MEDS: DULoxetine HCl 60 MG CAPSULE.DR PO (08:50)
[2023-04-07] MEDS: Gabapentin 300 MG CAPSULE PO (08:50)
[2023-04-07] MEDS: Fluticasone Propionate Nasal 16 GM SPRAY 2 SPRAY NOSTRIL-B (08:52)
[2023-04-07] MEDS: Fluticasone/Vilanterol 100/25 BLST.W.DEV 1 PUFF INHALE (08:52)
[2023-04-07] MEDS: Nicotine Polacrilex 2 MG GUM BUCCAL ×4 (09:00→23:44)
[2023-04-07] MEDS: Acetaminophen 325 MG TABLET 650 MG PO ×2 (12:08→18:59)
[2023-04-07 12:28] VITALS: BP 119/87; PULSE 72; RESP 20; TEMP 36.6; O2SAT 98
--- NOTE | 2023-04-07 15:36 | P.PNPSI_ITS ---
Subjective Subjective Date of Service: 04/07/23 Reason For Visit: SI/ attempt Interim History: calm, cooperative. reporting JIMENEZ. some feelings of SI and depression this morning. asks to end interview early due to brain fog and JIMENEZ. denies feeling like she is in withdrawal. Mental Status Exam Mental Status Exam Narrative: adequately dressed and groomed. cooperative. no PMA/PMR. speech nml rate, amount, loudness, tone, latency. thoughts linear and logical. affect constricted, normo-intense, non-labile. mood anxious. no SI/SIBI/HI/AVH expressed. Diagnostics Vital Signs (24Hr): Vital Signs - 24 hr 04/06/23 21:44 04/07/23 12:28 Temperature 97.2 F 97.8 F Pulse Rate 92 72 Respiratory Rate 16 20 Blood Pressure 119/77 119/87 Pulse Oximetry 99 98 Oxygen Delivery Method Room Air Room Air BMI result Body Mass Index 32.6 Labs 04/03/23 00:06 04/06/23 08:21 Labs: Laboratory Results - last 48 hr 04/06/23 04/06/23 04/06/23 08:21 08:21 08:21 Sodium 138 Potassium 4.1 Chloride 107 Carbon Dioxide 24 Anion Gap 11 L BUN 17 H Creatinine 0.82 Estim Creat Clear Calc 88.7 Estimated GFR > 60 Fasting Glucose 120 H Estimat Average Glucose 105 Hemoglobin A1c % 5.3 Calcium 9.3 Total Bilirubin 0.1 AST 11 ALT 12 Alkaline Phosphatase 104 Total Protein 6.5 Albumin 3.6 Triglycerides 319 Cholesterol 228 LDL Cholesterol, Calc 126 HDL Cholesterol 39 Vitamin B12 312 Folate 8.7 TSH 1.19 Free T4 0.76 Medications Medications Current Medications Acetaminophen (Acetaminophen 325 Mg Tablet) 650 mg PO Q6H PRN PRN Reason: Pain, Moderate(Pain Scale 4-6) Last Admin: 04/07/23 12:08 Dose: 650 mg Al Hydroxide/Mg Hydroxide (Magnesium Hydrox/Alum Hydrox 30 Ml Oral.Susp) 30 ml PO Q6H PRN PRN Reason: Heartburn/Nausea Albuterol Sulfate (Albuterol Sulfate 90 Mcg 8 Gm Inhaler) 2 puff INHALE Q6H PRN PRN Reason: Shortness Of Breath Or Wheezing Calcium Carbonate (Calcium Carbonate 500 Mg Tablet) 500 mg PO DAILY [facility] Last Admin: 04/07/23 08:50 Dose: 500 mg Dicyclomine HCl (Dicyclomine Hcl 10 Mg Capsule) 10 mg PO QIDACHS PRN PRN Reason: cramping Duloxetine HCl (Duloxetine Hcl 60 Mg Capsule.Dr) 60 mg PO DAILY [facility] Last Admin: 04/07/23 08:50 Dose: 60 mg Fluticasone Propionate (Fluticasone Propionate Nasal 16 Gm [place]) 2 spray NOSTRIL-B DAILY [facility] Last Admin: 04/07/23 08:52 Dose: 2 spray Fluticasone/Vilanterol (Fluticasone/Vilanterol 100/25 Blst.W.Dev) 1 puff INHALE RDAILY [facility] Last Admin: 04/07/23 08:52 Dose: 1 puff Gabapentin (Gabapentin 300 Mg Capsule) 300 mg PO DAILY [facility] Last Admin: 04/07/23 08:50 Dose: 300 mg Gabapentin (Gabapentin 400 Mg Capsule) 400 mg PO BEDTIME [facility] Last Admin: 04/06/23 21:44 Dose: 400 mg Hydroxyzine HCl (Hydroxyzine Hcl 25 Mg Tablet) 25 mg PO Q6H PRN PRN Reason: Anxiety Loperamide HCl (Loperamide Hcl 2 Mg Capsule) 2 mg PO Q6H PRN PRN Reason: Diarrhea Loratadine (Loratadine 10 Mg Tablet) 10 mg PO DAILY [facility] Last Admin: 04/07/23 08:49 Dose: 10 mg Lorazepam (Lorazepam 1 Mg Tablet) 1 mg PO DAILY PRN PRN Reason: severe anxiety Magnesium Hydroxide (Milk Of Magnesia 30 Ml Oral.Susp) 30 ml PO DAILY PRN PRN Reason: Constipation Modafinil (Modafinil 100 Mg Tablet) 200 mg PO BID [facility] Last Admin: 04/07/23 08:49 Dose: 200 mg Nicotine Polacrilex (Nicotine Polacrilex 2 Mg Gum) 2 mg BUCCAL Q2H PRN PRN Reason: Nicotine Cravings Last Admin: 04/07/23 09:00 Dose: 2 mg Propranolol HCl (Propranolol Hcl 20 Mg Tablet) 20 mg PO BID [facility]; Protocol Last Admin: 04/07/23 08:50 Dose: 20 mg Trazodone HCl (Trazodone Hcl 50 Mg Tablet) 50 mg PO BEDTIME MRX1 PRN PRN Reason: Insomnia Vitamin D (Cholecalciferol (Vitamin D3) 25 Mcg Tablet) 25 mcg PO DAILY [facility] Last Admin: 04/07/23 08:50 Dose: 25 mcg Allergies Allergies Allergy/AdvReac Type Severity Reaction Status Date / Time paroxetine [From PAXIL] Allergy Severe visual Verified 04/05/23 14:23 disturbance rofecoxib [From VIOXX] Allergy Severe hallucinati Verified 04/05/23 14:23 ons omeprazole [OMEPRAZOLE] Allergy Intermediate stomach Verified 04/05/23 14:23 distress cyclobenzaprine Allergy Unknown HALLUCINATI Verified 04/05/23 14:23 [From FLEXERIL] ON latex [Latex] Allergy Unknown RASH Verified 04/05/23 14:23 Assessment & Plan Assessment & Plan (1) Major depression: Status: Acute Code(s): F32.9 - Major depressive disorder, single episode, unspecified Plan 04/06: D/C topamax and scheduled bentyl as medications co-incident with worsening mental health. make bentyl and imodium available PRN for Sx of opioid withdrawal. otherwise continue outpt regimen. 04/07: anxiety and JIMENEZ today, feeling tired and foggy. continue current mgmt. Reason for continued inpatient stay Substantial Risk for: harm to self, inability to function and rapid decompensa tion Time Spent With Patient Time: Total time managing care of this patient today __25__ minutes.
[2023-04-07 20:45] VITALS: BP 113/67; PULSE 78; RESP 16; TEMP 36.8; O2SAT 100
[2023-04-07] MEDS: Gabapentin 400 MG CAPSULE PO (20:51)
[2023-04-08] MEDS: LORazepam 1 MG TABLET PO (01:33)
--- NOTE | 2023-04-08 01:39 | PC.NURSE ---
Cassie reporting anxiety 02/20o. Given Ativan Po prn.
[2023-04-08 09:01] VITALS: BP 106/76; PULSE 80; RESP 14; TEMP 36.3; O2SAT 100
[2023-04-08] MEDS: modafiniL 100 MG TABLET 200 MG PO (09:02)
[2023-04-08] MEDS: Cholecalciferol (Vitamin D3) 25 MCG TABLET PO (09:03)
[2023-04-08] MEDS: Loratadine 10 MG TABLET PO (09:03)
[2023-04-08] MEDS: DULoxetine HCl 60 MG CAPSULE.DR PO (09:03)
[2023-04-08] MEDS: Gabapentin 300 MG CAPSULE PO (09:03)
[2023-04-08] MEDS: Propranolol HCL 20 MG TABLET PO (09:03)
[2023-04-08] MEDS: Fluticasone Propionate Nasal 16 GM SPRAY 2 SPRAY NOSTRIL-B (09:33)
[2023-04-08] MEDS: Nicotine Polacrilex 2 MG GUM BUCCAL ×3 (09:33→13:24)
[2023-04-08] MEDS: Fluticasone/Vilanterol 100/25 BLST.W.DEV 1 PUFF INHALE (09:33)
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
--- NOTE | 2023-04-08 14:44 | PC.NURSE ---
Patient easily engaged, full range of affect. Reports mood is stable, denies highs or lows, denies racing though or confusion. Denies depression, denies SI/HI plan or intent at this time. Endorses anxiety relates this to pending discharge. Denies perceptual disturbances, no overt psychosis or expressed delusions. Denies A/V hallucinations. Reports support system in place for recovery services, has customer care team coach, involved in AA. Discharge paperwork reviewed with patient. Appointments reviewed, reports understanding. Medications reviewed, reports understanding. Crisis numbers provided to patient. All belongings taken with patient.
== END 2023-04-08 14:25 | disposition home or self-care (01) | DRG 881 ==
LOC: HO.ED 04-05 13:11 → HO.PADLT16 04-05 15:06
PROVIDERS: Physician Assistant Medical; Admitting Provider Psychiatry & Neurology Psychiatry; Emergency Provider Emergency Medicine Emergency Medical Services; Visit Provider Psychiatry & Neurology Psychiatry
DX: F32.9 Major depressive disorder, single episode, unspecified (principal); R45.851 Suicidal ideations; G25.81 Restless legs syndrome; Z20.822 Contact with and (suspected) exposure to COVID-19; Z87.891 Personal history of nicotine dependence; Z79.51 Long term (current) use of inhaled steroids; Z79.899 Other long term (current) drug therapy
CPT/HCPCS: 36415; 80053; 80061; 80143; 80179; 80307; 81001; 81025; 82607; 82746; 83036; 84439; 84443; 85025; 87635; 93005; 99285; S9485

== ENCOUNTER → 2023-04-02 23:37 | Outpatient (BNV) | payer OTHER, SELFPAY | PROVIDERS: Emergency Provider Emergency Medicine Emergency Medical Services; Visit Provider Internal Medicine Cardiovascular Disease | DX: R00.0 Tachycardia, unspecified (principal); R94.31 Abnormal electrocardiogram [ECG] [EKG] | CPT/HCPCS: 93010 ==

== ENCOUNTER → 2023-04-05 15:04 | Outpatient (BNV) | payer OTHER, SELFPAY | PROVIDERS: Admitting Provider Psychiatry & Neurology Psychiatry; Emergency Provider Emergency Medicine Emergency Medical Services; Visit Provider Psychiatry & Neurology Psychiatry | DX: F33.2 Major depressive disorder, recurrent severe without psychotic features (principal) | CPT/HCPCS: 90792; 99231; 99239 ==

== ENCOUNTER 2023-08-25 10:51 | Inpatient (IN) | payer OTHER, SELFPAY ==
[2023-08-25] VITALS (7 sets, daily range): BP systolic 103–137; BP diastolic 73–103; PULSE 82–100; RESP 11–16; TEMP 36.6–37.1; O2SAT 97; BMI 30.9
--- NOTE | 2023-08-25 10:58 | ED.GENADULT ---
HPI - General Adult General Chief complaint: Behavioral Concerns Stated complaint: TOOK 40 NIGHT/COUGH PILLS 1H AGO TO SLEEP PER EMS Time Seen by Provider: 08/25/23 10:58 Source: patient and EMS Mode of arrival: EMS Limitations: no limitations History of Present Illness HPI narrative: Patient is a 47 year old assigned female at with a history of MDD presenting to the emergency department today with a suicide attempt by overdosing on cold medicine. Patient states that she took 40 night time cough medicine tablets. Patient initially said she took it 1 hour prior to arrival, then stated she took it 7 hours earlier. Patient denies any dizziness, lightheadedness, abdominal pain, nausea, vomiting, fever, chills, blurry vision, double vision, loss of vision, chest pain, difficulty breathing, shortness of breath, back pain, night sweats, pain with urination, increased urinary frequency, increased urinary urgency, blood in her urine or stool, syncope or a near syncopal episode, recent trauma or falls, bowel incontinence, bladder incontinence, bowel retention, bladder retention, or any other complaints at this time. Relieving factors: none Exacerbating factors: none Associated symptoms: denies other symptoms Treatments prior to arrival: none Related Data Home Medications Medication Instructions Recorded Confirmed acetaminophen 325 mg tablet 650 mg PO Q6H PRN Pain 04/03/23 04/03/23 albuterol sulfate 90 mcg/actuation 2 puff inhalation Q6H PRN 04/03/23 04/03/23 aerosol inhaler (Ventolin HFA) Shortness Of Breath Or Wheezing calcium carbonate 500 mg calcium 500 mg PO DAILY 04/03/23 04/03/23 (1,250 mg) tablet cetirizine 10 mg tablet 10 mg PO DAILY 04/03/23 04/03/23 cholecalciferol (vitamin D3) 25 25 mcg PO DAILY 04/03/23 04/03/23 mcg (1,000 unit) tablet duloxetine 60 mg capsule,delayed 60 mg PO DAILY 04/03/23 04/03/23 release fluticasone propionate 45 1 puff inhalation BID 04/03/23 04/03/23 mcg-salmeterol 21 mcg/actuation HFA inhaler (Advair HFA) fluticasone propionate 50 2 spray intranasal DAILY 04/03/23 04/03/23 mcg/actuation nasal spray,suspension gabapentin 300 mg capsule 300 mg PO DAILY 04/03/23 04/03/23 gabapentin 400 mg capsule 400 mg PO BEDTIME 04/03/23 04/03/23 modafinil 200 mg tablet 200 mg PO BID 04/03/23 04/03/23 propranolol 20 mg tablet 20 mg PO BID 04/03/23 04/03/23 Previous Rx's Medication Instructions Recorded dicyclomine 10 mg capsule 10 mg PO QIDACHS PRN cramping 30 04/08/23 days #0 caps lorazepam 1 mg tablet 1 mg PO DAILY PRN severe anxiety 04/08/23 #0 tabs nicotine (polacrilex) 4 mg gum 4 mg PO Q2H PRN Nicotine Cravings 04/08/23 30 days #110 ea Allergies Allergy/AdvReac Type Severity Reaction Status Date / Time paroxetine [From PAXIL] Allergy Severe visual Verified 04/05/23 14:23 disturbance rofecoxib [From VIOXX] Allergy Severe hallucinati Verified 04/05/23 14:23 ons omeprazole [OMEPRAZOLE] Allergy Intermediate stomach Verified 04/05/23 14:23 distress cyclobenzaprine Allergy Unknown HALLUCINATI Verified 04/05/23 14:23 [From FLEXERIL] ON latex [Latex] Allergy Unknown RASH Verified 04/05/23 14:23 Review of Systems Constitutional: Constitutional: Reports no additional constitutional complaints, Denies chills, Denies fever(s) and Denies night sweats Eyes: Eyes: Reports no additional eye complaints, Denies blurry vision, Denies change in vision, Denies diplopia, Denies eye discharge, Denies loss of vision and Denies eye pain ENT: Denies dizziness Cardiovascular: Cardiovascular: Reports no additional cardiovascular complaints, Denies chest pain, Denies lightheadedness, Denies Loss of Consciousness and Denies dyspnea Respiratory: Respiratory: Reports no additional respiratory complaints and Denies dyspnea Gastrointestinal: Gastrointestinal: Reports no additional gastrointestinal complaints, Denies abdominal pain, Denies melena, Denies hematochezia, Denies change in bowel habits and Denies change in stool character Genitourinary: Genitourinary: Denies hematuria, Denies urinary frequency, Denies dysuria, Denies urinary incontinence, Denies urinary hesitancy and Denies urinary urgency Musculoskeletal: Musculoskeletal: Reports no additional musculoskeletal complaints, Denies numbness and Denies tingling Neurologic: Denies dizziness, Denies loss of vision, Denies numbness and Denies tingling Psychiatric: Psychiatric: Reports suicidal ideation Endocrine: Endocrine: Reports no additional endocrine complaints Hematologic/Lymphatic: Hematologic/Lymphatic: Reports no additional hematologic/lymphatic complaints Allergic/Immunologic: Allergic/Immunologic: Reports no additional allergic/immunologic complaints PMFSH Past Medical History Attestation statement: The following information was validated with the patient. Source: old records reviewed and nursing notes reviewed Onset Date is defined in the Problem List Problems that require an onset date and time if occurred within 24 hrs of arrival to the ED Aortic Dissection and Rupture; Neurologic impairment; Cardiopulmonary Arrest; Endotracheal Intubation; Insertion or Replacement of Mechanical Circulatory Assist Device Medical History Vertebral compression fracture Restless leg syndrome Social History Social History Household Members: None Housing: Apartment Do you presently have visiting nurse or other home services: No Alcohol intake: current Alcohol intake frequency: a few times a month Alcohol type: hard liquor Patient Tobacco Use Status: Former Tobacco user Tobacco use type: Cigarette Years Smoked: 18 Smoked in Last 30 Days: No Second Hand Smoke Exposure: No Use of substances other than those prescribed or required for medical reasons: Yes Substance Use Type: Marijuana Substance Use Frequency: Monthly Any prior treatment program specific to substance use: No Advance Directives: No service: Yes Sexual orientation: Don't Know Physical Exam ED Vital Signs: Vital Signs - 24 hr 08/25/23 11:09 08/25/23 11:21 08/25/23 11:50 Temperature 97.9 F 98.7 F Pulse Rate 100 98 99 Respiratory Rate 16 14 16 Blood Pressure 136/93 H 137/103 H 128/96 H Pulse Oximetry 97 97 97 Oxygen Delivery Method Room Air Room Air Room Air 08/25/23 12:13 08/25/23 14:39 Temperature 97.8 F Pulse Rate 91 86 Respiratory Rate 11 L 15 Blood Pressure 123/75 103/73 Pulse Oximetry 97 97 Oxygen Delivery Method Room Air Room Air BMI result Body Mass Index 30.9 Const General: cooperative, no acute distress, alert and awake Nutritional Appearance: well nourished Orientation/consciousness: patient oriented x3 Limitations: no limitations HENMT Head: Yes normal to inspection and Yes atraumatic Ears: hearing grossly normal bilaterally and external ears normal General nose exam: Normal external nose present, no nasal discharge noted and no epistaxis Face and sinus: Yes normal facial exam, No abrasion and No laceration Mouth: Normal oral and palatal mucosa present, no drooling and no muffled voice Eyes General: appearance normal, both eyes and all related structures Periorbital: periorbital findings normal Eyelids: Yes eyelids normal Conjunctivae: conjunctivae normal Pupils: Equal, round and reactive pupils present EOM: EOMs intact bilaterally Neck Neck: Yes normal visual inspection, Yes full ROM and Yes no lymphadenopathy Chest Chest palpation & inspection: normal inspection of the chest Resp Effort & Inspection: normal respiratory effort and able to speak in complete sentences Auscultation: clear to auscultation bilaterally Cardio Rate: regular rate Rhythm: regular rhythm GI Inspection: Yes normal to inspection Neuro General: patient oriented x3 and moves all extremities Cranial nerves: Yes Equal, round and reactive pupils present Cognition (Neuro): normal cognition Motor exam (neuro): 5/5 motor strength present throughout Sensory Exam: Normal double simultaneous stimulation for sensation Coordination: [id number] test normal Extrem General: Yes normal to inspection, Yes full ROM and Yes capillary refill normal Psych Thought content: Suicidality present Medications Administered Discontinued Medications Generic Name Dose Route Start Last Admin Trade Name Minhq PRN Reason Stop Dose Admin Charcoal 50 gm 08/25/23 11:03 08/25/23 11:19 Activated Charcoal 50 Gm/240 Ml Oral.Susp PO 08/25/23 11:04 50 gm ONCE ONE Administration Sodium Chloride 1,000 mls @ 999 mls/hr 08/25/23 12:45 08/25/23 14:40 Ns IV 08/25/23 13:45 Infused .Q1H1M EDDY Infusion Medical Decision Making Medical Decision Making [facility] Narrative: Patient is a 47 year old assigned female at with a history of MDD presenting to the emergency department today after taking approximately 40 evening time cough medication tablets. Patient's physical exam was unremarkable. Patient's blood work showed an elevated WBC count of 12.2 and a sodium of 132 but was otherwise unremarkable. Patient's initial acetaminophen level is negative. 4 hour repeat will be drawn. Patient's EKG was unremarkable. Patient was immediately given activated charcoal. Spoke with poison control who recommended 2 hour repeat EKGs and 4 hour repeat acetaminophen level. As long as those levels and repeat EKGs are OK, patient will be cleared for CARE team evaluation. I explained my physical exam findings as well as all test results to the patient. I answered all questions asked by the patient. Differential Diagnosis Differential Diagnoses: The differential diagnosis associated with the presentation includes Intentional overdose Acetaminophen overdose Suicidal ideation Suicide attempt Admission/Observation Consideration of admission/observation: Escalation of care including admission/observation considered Patient's disposition will be determined after repeat EKGs, repeat acetaminophen level, and CARE team evaluation. Lab Data [facility] Lab Attestation statement: I reviewed the patient's lab results. My interpretation of these results are in the [facility] Rationale portion of this note. 08/25/23 11:44 08/25/23 11:44 Labs: Lab Results 08/25/23 Range/Units 11:44 WBC 12.2 H (4.8-10.8) X10*3/uL RBC 3.94 L (4.20-5.50) X10*6/uL Hgb 12.0 (12.0-16.0) g/dl Hct 35.7 L (37.0-47.0) % MCV 90.6 (80.0-98.0) fL MCH 30.5 (27.0-33.0) pg MCHC 33.6 (31.0-35.0) g/dl RDW 13.2 (11.0-16.0) % Plt Count 265 (160-400) X10*3/uL MPV 10.0 (9.4-12.3) fL Immature Gran % (Auto) 0.5 H (0.0-0.4) % Neut % (Auto) 73.9 H (45-73) % Lymph % (Auto) 18.3 L (20-40) % [place] % (Auto) 6.6 (2-11) % Eos % (Auto) 0.5 (0-4) % Baso % (Auto) 0.2 (0-2) % Lymph # (Auto) 2.2 (1.2-4.9) X10*3/uL [place] # (Auto) 0.8 (0.1-1.2) X10*3/uL Eos # (Auto) 0.1 (0.0-0.4) X10*3/uL Baso # (Auto) 0.0 (0.0-0.2) X10*3/uL Abs Immat Gran (auto) 0.06 H (0.00-0.03) X10*3/uL Absolute Neuts (auto) 9.0 H (2.0-8.3) x10*3/uL Absolute Nucleated RBC 0.000 (0.0-0.012) X10*3/uL Nucleated RBC % (auto) 0.0 (0.0-0.2) /100WBC Sodium 132 L (135-145) mmol/L Potassium 4.1 (3.3-5.1) mmol/L Chloride 107 (96-108) mmol/L Carbon Dioxide 18 L (22-29) mmol/L Anion Gap 11 L (12-20) BUN 9 (9-16) mg/dL Creatinine 0.86 (0.5-1.4) mg/dL Estim Creat Clear Calc 85.3 Estimated GFR > 60 Random Glucose 144 H (60-115) mg/dL Calcium 8.6 D (8.4-10.2) mg/dL Magnesium 1.8 (1.6-2.6) mg/dL Total Bilirubin 0.4 (0.0-1.0) mg/dL Direct Bilirubin 0.1 (0.0-0.5) mg/dL AST 22 (5-31) U/L ALT 14 (0-31) U/L Alkaline Phosphatase 88 (39-117) U/L Total Protein 7.0 (6.5-8.0) g/dL Albumin 4.0 (3.5-5.0) g/dL Lipase 40 (8-78) U/L Urine Color Yellow Urine Appearance Clear Urine pH 5.0 (5.0-9.0) Ur Specific Reva 1.010 (1.005-1.025) Urine Protein Negative (Neg-Trace) mg/dL Urine Glucose (UA) Negative (Negative) mg/dL Urine Ketones Negative (Negative) mg/dL Urine Blood Negative (Negative) Urine Nitrite Negative (Negative) Ur Leukocyte Esterase Negative (Negative) Salicylates < 5.0 L (15-30) mg/dL Urine Opiates Screen Not Detected (Not Detect) Urine Fentanyl Screen Not Detected (Not Detect) Acetaminophen < 3 (<30) mcg/mL Ur Barbiturates Screen Not Detected (Not Detect) Ur Phencyclidine Scrn Not Detected (Not Detect) Ur Amphetamines Screen Not Detected (Not Detect) U Benzodiazepines Scrn Not Detected (Not Detect) Urine Cocaine Screen Not Detected (Not Detect) U Marijuana (THC) Screen Not Detected (Not Detect) Ethyl Alcohol < 10 mg/dL COVID-19 (TEN) Negative (Negative) COVID-19 Clin Com See Note Independent Interpretation I performed an independent interpretation of an: EKG Interpretation: Vent. Rate: 090 BPM Atrial Rate: 090 BPM P-R Int: 152 ms QRS Dur: 076 ms QT Int: 392 ms P-R-T Axes: 056 077 055 degrees QTc Int: 479 ms Normal sinus rhythm Possible Left atrial enlargement Borderline ECG When compared with ECG of 03-APR-2023 00:15, Nonspecific T wave abnormality has replaced inverted T waves in Inferior leads DD/ 1150 Vent. Rate: 085 BPM Atrial Rate: 085 BPM P-R Int: 154 ms QRS Dur: 080 ms QT Int: 392 ms P-R-T Axes: 062 084 052 degrees QTc Int: 466 ms Normal sinus rhythm Normal ECG When compared with ECG of 25-AUG-2023 11:50, No significant change was found DD/ 1321 Radiology Impression Discussion of test interpretation with radiology: I have reviewed the radiologist's reading. Independent Historian Clinical information obtained from an independent historian. History obtained from or confirmed by: EMS (EMS provided additional history and confirmed the history provided by the patient.) Critical Care Time Critical Care Time Critical Care Time: Yes Total Critical Care Time: 55 Attestation: I spent 55 minutes of Critical Care Time with this patient. This does not include time spent on separately reported billable procedures. Discharge Plan Discharge Clinical Impression: Intentional overdose, Suicide attempt Patient Disposition: Still a Patient Prescriptions: No Action cetirizine 10 mg tablet 10 mg PO DAILY gabapentin 400 mg capsule 400 mg PO BEDTIME modafinil 200 mg tablet 200 mg PO BID calcium carbonate 500 mg calcium (1,250 mg) tablet 500 mg PO DAILY gabapentin 300 mg capsule 300 mg PO DAILY propranolol 20 mg tablet 20 mg PO BID fluticasone propionate 50 mcg/actuation spray,suspension 2 spray intranasal DAILY duloxetine 60 mg capsule,delayed release(DR/EC) 60 mg PO DAILY fluticasone propion-salmeterol [Advair HFA] 45-21 mcg/actuation HFA aerosol inhaler 1 puff INHALATION BID cholecalciferol (vitamin D3) 25 mcg (1,000 unit) tablet 25 mcg PO DAILY albuterol sulfate [Ventolin HFA] 90 mcg/actuation HFA aerosol inhaler 2 puff inhalation Q6H PRN (Reason: Shortness Of Breath Or Wheezing) acetaminophen 325 mg Tablet 650 mg PO Q6H PRN (Reason: Pain) lorazepam 1 mg Tablet 1 mg PO DAILY PRN (Reason: severe anxiety) Qty: 0 0RF dicyclomine 10 mg Capsule 10 mg PO QIDACHS PRN (Reason: cramping) 30 Days Qty: 0 0RF nicotine (polacrilex) 4 mg gum 4 mg PO Q2H PRN (Reason: Nicotine Cravings) 30 Days Qty: 110 0RF
--- NOTE | 2023-08-25 11:44 | PC.NURSE ---
This RN spoke with poison control, per staff there the following orders should be implemented: -LFTs, Mag, Electrolytes, Tylenol and Aspirin level -EKG every 2 hours times 3 -activated charcoal if patient is awake enough to drink it Suman JOHNS aware of orders
--- NOTE | 2023-08-25 11:57 | PC.NURSE ---
Pt BIBA from her apartment, she reports that she took 40 cough medicine pills in order to fuck it all . Pt endorses SI and states she has done similar things in the past, has been admitted to an inpt unit for psych before. Pt is calm and cooperative, offers no complaints to this RN, denies CP, SOB, dizziness. Lung sounds clear bilaterally, no abdominal pain. Pt drank all of her charcoal drink, remains normal sinus on monitor. Blood work, urine and COVID swab sent down and pending
[2023-08-25 12:38] LABS: Alanine Aminotransferase 14 U/L (0-31); Alkaline Phosphatase 88 U/L (39-117); Anion Gap 11 (12-20); Aspartate Amino Transferase 22 U/L (5-31); Bilirubin Total 0.4 mg/dL (0.0-1.0); Blood Urea Nitrogen 9 mg/dL (9-16); Calcium 8.6 mg/dL (8.4-10.2); Carbon Dioxide 18 mmol/L (22-29); Chloride 107 mmol/L (96-108); Creatinine Clr Calc Pharmacy 85.3; Estimated Glomerular Filt Rate > 60; Ethanol < 10 mg/dL; Glucose Random 144 mg/dL (60-115); Potassium 4.1 mmol/L (3.3-5.1); Sodium 132 mmol/L (135-145)
[2023-08-25 12:49] LABS: Bilirubin Direct 0.1 mg/dL (0.0-0.5); Lipase 40 U/L (8-78); Magnesium 1.8 mg/dL (1.6-2.6)
--- NOTE | 2023-08-25 14:31 | PC.NURSE ---
Pt continues to rest on stretcher, respirations even and unlabored, skin pwd, no apparent distress, sleeping at this time
--- NOTE | 2023-08-25 22:34 | MHC.CARE ---
CARE Team assessment complete. Pt is accepted to [facility] and Dr. Vanessa and POD RN have been updated on plan. Prior Auth through [facility] completed and eval has been faxed. Pt was put on a section 12a for safety and is voluntary to inpatient treatment.
[2023-08-26 01:47] VITALS: BP 130/78; PULSE 78; RESP 18; TEMP 36.7; O2SAT 99
--- NOTE | 2023-08-26 02:01 | PC.ADMIT ---
pt arrived at 0100 from the pod on a legal status of a CV. Pt is pleasant and cooperative upon admission. Skin check and slip box changer completed with MARCELO Mendes. Presented after a SI attempt on overdosing on cough medicine. Pt is A & O x4. Mood is depressed and anxious w/ congruent affect. Eye contact is poor during interview. Thought process is linear and clear. Speech content is coherent, but soft. Reports that she has had recent stressors with the holidays, not seeing her therapist, and issues with neighbors being threatening. Stated that it was impulsive due to all the stress. Pt set forth a goal for discharge to be to get into a program for substance abuse . Currently denies SI/HI/AH/VH. Denies Plan or intent for SI or self injurious behavior. Reports that she will have VH of shadows from time to time. Sleep and appetite have been poor. Has nightmares a few times a week. Denies any acute physical concerns at this time. None noted.
[2023-08-26 07:00] VITALS: BP 108/67; PULSE 68; TEMP 36.7; O2SAT 99
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
[2023-08-26 18:00] VITALS: BP 112/68; PULSE 70; RESP 18; TEMP 36.7; O2SAT 98
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
[2023-08-27 08:54] VITALS: BP 99/58; PULSE 73; RESP 16; TEMP 36.9; O2SAT 97
[2023-08-27 09:20] VITALS: BP 121/74; PULSE 87
[2023-08-27 09:23] LABS: Alanine Aminotransferase 13 U/L (0-31); Albumin Level 3.7 g/dL (3.5-5.0); Alkaline Phosphatase 88 U/L (39-117); Anion Gap 10 (12-20); Aspartate Amino Transferase 13 U/L (5-31); Bilirubin Total 0.3 mg/dL (0.0-1.0); Blood Urea Nitrogen 8 mg/dL (9-16); Carbon Dioxide 28 mmol/L (22-29); Chloride 105 mmol/L (96-108); Cholesterol 238 mg/dL (<200); Estimated Glomerular Filt Rate > 60; Glucose Fasting 104 mg/dL (60-99); HDL Cholesterol 57 mg/dL (>40); LDL Cholesterol Calculated 126 mg/dL (<100); Potassium 3.6 mmol/L (3.3-5.1); Sodium 139 mmol/L (135-145); Total Protein 6.6 g/dL (6.5-8.0); Triglycerides 276 mg/dL (<150)
[2023-08-27 09:41] LABS: Thyroid Stimulating Hormone 1.66 uIU/mL (0.32-4.0)
[2023-08-27 18:00] VITALS: BP 106/72; PULSE 82; RESP 18; TEMP 36.6; O2SAT 98
[2023-08-28 09:10] VITALS: BP 106/63; PULSE 70; RESP 18; TEMP 36.2; O2SAT 99
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
[2023-08-28 18:00] VITALS: BP 128/78; PULSE 73; RESP 16; TEMP 36.3; O2SAT 99
[2023-08-28 22:35] VITALS: BP 113/62; PULSE 74; TEMP 36.3
[2023-08-29 08:55] VITALS: BP 101/59; PULSE 71; RESP 18; TEMP 36.2; O2SAT 99
[2023-08-29 18:00] VITALS: BP 118/66; PULSE 72; RESP 17; TEMP 36.6; O2SAT 98
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
[2023-08-30 08:24] VITALS: BP 99/56; PULSE 69; RESP 16; TEMP 37.1; O2SAT 99
[2023-08-30 09:20] VITALS: BP 109/66; PULSE 72
[2023-08-30 16:41] VITALS: BP 108/67; PULSE 67; RESP 16; O2SAT 99
[2023-08-30] MEDS: Propranolol HCL 20 MG TABLET PO (20:16)
[2023-08-30] MEDS: Gabapentin 400 MG CAPSULE PO (20:16)
[2023-08-30] MEDS: traZODone HCL 50 MG TABLET PO (20:16)
[2023-08-30] MEDS: Lithium Carbonate ER 300 MG TABLET.ER 600 MG PO (20:17)
[2023-08-30] MEDS: hydrOXYzine HCL 25 MG TABLET PO (20:17)
[2023-08-30] MEDS: Nicotine Polacrilex 2 MG GUM 4 MG BUCCAL (20:20)
[2023-08-31] MEDS: traZODone HCL 50 MG TABLET PO ×2 (00:41→21:51)
[2023-08-31 08:44] VITALS: BP 104/64; PULSE 74; RESP 16; TEMP 36.2; O2SAT 97
[2023-08-31] MEDS: Topiramate 25 MG TABLET 50 MG PO (08:59)
[2023-08-31] MEDS: Cholecalciferol (Vitamin D3) 25 MCG TABLET PO (09:00)
[2023-08-31] MEDS: Propranolol HCL 20 MG TABLET PO ×2 (09:00→21:51)
[2023-08-31] MEDS: Gabapentin 300 MG CAPSULE PO (09:00)
[2023-08-31] MEDS: DULoxetine HCl 30 MG CAPSULE.DR PO (09:00)
[2023-08-31] MEDS: modafiniL 100 MG TABLET 200 MG PO ×2 (09:01→13:16)
[2023-08-31] MEDS: Nicotine Polacrilex 2 MG GUM 4 MG BUCCAL ×4 (09:34→20:32)
[2023-08-31 09:41] LABS: Lithium 0.43 mmol/L (0.60-1.20)
[2023-08-31 09:53] LABS: Anion Gap 10 (12-20); Blood Urea Nitrogen 12 mg/dL (9-16); Carbon Dioxide 27 mmol/L (22-29); Chloride 107 mmol/L (96-108); Creatinine Clr Calc Pharmacy 95.4; Estimated Glomerular Filt Rate > 60; Glucose Random 105 mg/dL (60-115); Potassium 4.1 mmol/L (3.3-5.1); Sodium 140 mmol/L (135-145)
[2023-08-31 10:13] LABS: TSH reflex Free T4 2.79 uIU/mL (0.32-4.0)
[2023-08-31] MEDS: Acetaminophen 325 MG TABLET 650 MG PO (13:16)
[2023-08-31] MEDS: Magnesium Hydrox/Alum Hydrox 30 ML ORAL.SUSP PO (13:41)
[2023-08-31 16:30] VITALS: BP 107/67; PULSE 78; RESP 16; TEMP 36.5; O2SAT 98
[2023-08-31 17:00] VITALS: BP 107/70; PULSE 78; RESP 16; TEMP 36.5; O2SAT 98
[2023-08-31] MEDS: LORazepam 1 MG TABLET PO (20:32)
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
[2023-08-31] MEDS: Lithium Carbonate ER 300 MG TABLET.ER 600 MG PO (21:51)
[2023-08-31] MEDS: Gabapentin 400 MG CAPSULE PO (21:51)
[2023-08-31] MEDS: hydrOXYzine HCL 25 MG TABLET PO (21:51)
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
[2023-09-01] MEDS: Acetaminophen 325 MG TABLET 650 MG PO (08:31)
[2023-09-01] MEDS: modafiniL 100 MG TABLET 200 MG PO (08:31)
[2023-09-01] MEDS: DULoxetine HCl 30 MG CAPSULE.DR PO (08:31)
[2023-09-01] MEDS: Cholecalciferol (Vitamin D3) 25 MCG TABLET PO (08:31)
[2023-09-01] MEDS: Topiramate 25 MG TABLET 50 MG PO (08:31)
[2023-09-01] MEDS: Gabapentin 300 MG CAPSULE PO (08:31)
[2023-09-01] MEDS: Propranolol HCL 20 MG TABLET PO (08:32)
[2023-09-01 08:52] VITALS: BP 103/72; PULSE 74; RESP 16; TEMP 36; O2SAT 99
[2023-09-01] MEDS: Nicotine Polacrilex 2 MG GUM 4 MG BUCCAL (09:48)
[2023-09-01] MEDS: LORazepam 1 MG TABLET PO (09:48)
== END 2023-09-01 11:31 | disposition home or self-care (01) | DRG 885 ==
LOC: HO.ED 18:25 → HO.PM5 08-26 00:35
PROVIDERS: Physician Assistant Medical; Social Worker; Admitting Provider Psychiatry & Neurology Psychiatry; Emergency Provider Emergency Medicine; Visit Provider Psychiatry & Neurology Psychiatry
DX: F31.81 Bipolar II disorder (principal); E87.1 Hypo-osmolality and hyponatremia; F43.10 Post-traumatic stress disorder, unspecified; G47.419 Narcolepsy without cataplexy; T50.992A Poisoning by other drugs, medicaments and biological substances, intentional self-harm, initial encounter; Z20.822 Contact with and (suspected) exposure to COVID-19; Z87.891 Personal history of nicotine dependence; Z79.51 Long term (current) use of inhaled steroids; Z79.899 Other long term (current) drug therapy
CPT/HCPCS: 36415; 80048; 80053; 80061; 80143; 80178; 80179; 80307; 81003; 82248; 82607; 83036; 83690; 83735; 84443; 85025; 87635; 93005; 99285; S9485

== ENCOUNTER → 2023-08-25 10:58 | Outpatient (BNV) | payer OTHER, SELFPAY | PROVIDERS: Emergency Provider Emergency Medicine; Visit Provider Internal Medicine Cardiovascular Disease | DX: R45.851 Suicidal ideations (principal) | CPT/HCPCS: 93010 ==

== ENCOUNTER → 2023-08-26 00:31 | Outpatient (BNV) | payer OTHER, SELFPAY | PROVIDERS: Admitting Provider Psychiatry & Neurology Psychiatry; Emergency Provider Emergency Medicine; Visit Provider Psychiatry & Neurology Psychiatry | DX: F31.81 Bipolar II disorder (principal); F43.11 Post-traumatic stress disorder, acute | CPT/HCPCS: 90792; 99231; 99232; 99239 ==

== ENCOUNTER 2024-07-08 14:11 | Inpatient (IN) | payer OTHER, SELFPAY ==
[2024-07-08 14:15] VITALS: BP 159/96; BP 173/101; PULSE 130; RESP 16; TEMP 35.6; O2SAT 97; O2SAT 98; BMI 31.9
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
--- NOTE | 2024-07-08 14:29 | ECG_ITS ---
Test Reason : tachy Blood Pressure : / mmHG Vent. Rate : 120 BPM Atrial Rate : 120 BPM P-R Int : 144 ms QRS Dur : 076 ms QT Int : 316 ms P-R-T Axes : 045 063 039 degrees QTc Int : 446 ms Sinus tachycardia Possible Left atrial enlargement Cannot rule out Anterior infarct , age undetermined Abnormal ECG When compared with ECG of 25-AUG-2023 15:49, No significant change was found Referred By: Generic ED Physician Electronically Signed By:Aneesh Espinoza
[2024-07-08 14:45] LABS: MANUAL DIFF FLAG NO
[2024-07-08 14:47] LABS: Basophils Percent Auto 0.3 % (0-2); Eosinophils Percent Auto 0.1 % (0-4); Hematocrit 39.2 % (37.0-47.0); Hemoglobin 13.8 g/dl (12.0-16.0); Imm Gran Abs Auto 0.09 X10*3/uL (0.00-0.03); Imm Gran Pct Auto 0.7 % (0.0-0.4); Lymphocytes Absolute Auto 2.2 X10*3/uL (1.2-4.9); Lymphocytes Percent Auto 16.4 % (20-40); Mean Corpuscular HGB Conc 35.2 g/dl (31.0-35.0); Mean Corpuscular Hemoglobin 30.8 pg (27.0-33.0); Mean Corpuscular Volume 87.5 fL (80.0-98.0); Monocytes Absolute Auto 0.7 X10*3/uL (0.1-1.2); Neutrophils Absolute Auto 10.4 x10*3/uL (2.0-8.3); Neutrophils Percent Auto 77.5 % (45-73); Platelet Count 294 X10*3/uL (160-400); Red Blood Count 4.48 X10*6/uL (4.20-5.50); Red Cell Distribution Width 12.9 % (11.0-16.0); White Blood Count 13.5 X10*3/uL (4.8-10.8)
[2024-07-08 15:17] LABS: Alanine Aminotransferase 16 U/L (0-31); Albumin Level 4.5 g/dL (3.5-5.0); Alkaline Phosphatase 89 U/L (39-117); Anion Gap 17 (12-20); Aspartate Amino Transferase 26 U/L (5-31); Bilirubin Total 0.3 mg/dL (0.0-1.0); Blood Urea Nitrogen 10 mg/dL (9-16); Calcium 9.4 mg/dL (8.4-10.2); Carbon Dioxide 22 mmol/L (22-29); Chloride 101 mmol/L (96-108); Estimated Glomerular Filt Rate > 60; Glucose Random 101 mg/dL (60-115); Magnesium 1.8 mg/dL (1.6-2.6); Potassium 3.9 mmol/L (3.3-5.1); Sodium 136 mmol/L (135-145); Total Protein 7.7 g/dL (6.5-8.0)
[2024-07-08 15:27] LABS: Ethanol < 10 mg/dL; HCG Quantitative < 2 mIU/mL; Salicylate < 5.0 mg/dL (15-30); Troponin-I High Sensitivity < 2.7 ng/L (<3.5-17.0)
[2024-07-08 15:29] LABS: Influenza A PCR NEGATIVE (Negative); Influenza B PCR NEGATIVE (Negative); Resp Syncy Virus RNA Qual PCR NEGATIVE (Negative); SARS COV2 PCR INHOUSE NEGATIVE (Negative)
--- NOTE | 2024-07-08 15:30 | PC.NURSE ---
report given to Luciano RN pt to rec further eval and tx in pod
[2024-07-08 16:14] LABS: Appearance Urine Clear; Color Urine Yellow; Glucose Urine UA Negative (Negative); Leukocyte Esterase Urine Negative (Negative); Nitrite Urine Negative (Negative); PH 5.5 (5.0-9.0); Specific Gravity - Urine <= 1.005 (1.005-1.025); Urine Blood Negative (Negative); Urine Ketones Negative (Negative); Urine Protein Negative (Neg-Trace)
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
[2024-07-08 16:34] VITALS: BP 131/89; PULSE 122; RESP 18; TEMP 37.7; O2SAT 98
[2024-07-08 16:54] LABS: Amphetamine Screen Urine Not Detected (Not Detect); Barbiturates, Urine Not Detected (Not Detect); Benzodiazepines Screen Urine Not Detected (Not Detect); Buprenorphine Scr Not Detected (Not Detect); Cannabinoid Screen Urine Not Detected (Not Detect); Cocaine Screen Urine Not Detected (Not Detect); Fentanyl, urine Not Detected (Not Detect); Methadone Screen, Urine Not Detected (Not Detect); Opiate Screen Urine Not Detected (Not Detect); Oxycodone Screen Urine Not Detected (Not Detect); Phencyclidine Screen Urine Not Detected (Not Detect)
--- NOTE | 2024-07-08 17:39 | PC.NURSE ---
pt showed this RN a bruise she has on her left thigh. Bruise on left thigh is approximately 6x3 inches, oval in shape. She reports she got the buise when she took a fall about two days ago. she report no headstrike associated with the fall
[2024-07-08 17:51] LABS: Acetaminophen LAB < 3 mcg/mL (<30)
--- NOTE | 2024-07-08 18:55 | PC.NURSE ---
Assumed care of pt. Pt lying on stretcher, no acute distress at this time, calm and cooperative. Continuing safety observations per orders.
--- NOTE | 2024-07-08 19:24 | MHC.CARE ---
Pt IPLOC, Dr Robins consulted. Pt placed on section 12A
[2024-07-08] MEDS: Nicotine Polacrilex 2 MG GUM 4 MG BUCCAL (20:16)
[2024-07-08] MEDS: LORazepam 1 MG TABLET 2 MG PO (20:16)
[2024-07-08] MEDS: DULoxetine HCl 30 MG CAPSULE.DR PO (20:16)
--- NOTE | 2024-07-08 20:36 | PC.NURSE ---
Pt to RN desk for night time medications. No acute distress, calm and cooperative at this time.
[2024-07-08 23:53] VITALS: BP 123/82; PULSE 101; RESP 16; TEMP 36.8; O2SAT 97
[2024-07-09] MEDS: Nicotine Polacrilex 2 MG GUM 4 MG BUCCAL ×3 (07:13→23:06)
--- NOTE | 2024-07-09 07:30 | PHA.MEDREC ---
Pharmacy Consult ? Medication Reconciliation Pharmacy has reviewed the medication reconciliation.
--- NOTE | 2024-07-09 07:39 | PC.NURSE ---
Assumed care of patient at 0645, patient appears to be in no apparent distress this am, calm and cooperative, offering no complaints to this RN. Pt aware of plan of care for IPLOC
[2024-07-09] MEDS: DULoxetine HCl 30 MG CAPSULE.DR PO (08:26)
[2024-07-09] MEDS: Loratadine 10 MG TABLET PO (08:26)
[2024-07-09] MEDS: Gabapentin 300 MG CAPSULE PO (08:26)
[2024-07-09 08:44] VITALS: BP 120/76; PULSE 86; RESP 15; TEMP 36.4; O2SAT 98
[2024-07-09] MEDS: LORazepam 1 MG TABLET 2 MG PO ×2 (15:08→23:06)
[2024-07-09 22:57] VITALS: BP 116/84; PULSE 95; RESP 20; TEMP 36.8; O2SAT 96
--- NOTE | 2024-07-10 00:28 | PC.NURSE ---
took over care at 23:00, pt is sleeping at this time.
--- NOTE | 2024-07-10 05:54 | PC.NURSE ---
pt sleeping, no sign of distress or concerns during the night.
[2024-07-10 06:00] VITALS: BP 107/71; PULSE 75; RESP 14; TEMP 36.5; O2SAT 97
[2024-07-10] MEDS: Gabapentin 300 MG CAPSULE PO (08:25)
[2024-07-10] MEDS: DULoxetine HCl 30 MG CAPSULE.DR PO (08:25)
[2024-07-10] MEDS: Loratadine 10 MG TABLET PO (08:25)
[2024-07-10] MEDS: LORazepam 1 MG TABLET 2 MG PO ×2 (08:37→13:39)
[2024-07-10] MEDS: Nicotine Polacrilex 2 MG GUM 4 MG BUCCAL ×3 (08:38→17:39)
[2024-07-10 13:14] LABS: UPreg QC Valid YES
[2024-07-10 13:15] LABS: Urine Pregnancy NEGATIVE (NEGATIVE)
[2024-07-10] MEDS: Acetaminophen 325 MG TABLET 650 MG PO (13:40)
[2024-07-10 14:22] VITALS: BP 133/78; PULSE 113; RESP 17; TEMP 36.4; O2SAT 99
--- NOTE | 2024-07-10 14:27 | MHC.CARE ---
[facility] bed found form faxed to [facility]. Form and accompanying documents scanned and sent to [facility]
[2024-07-10 14:45] VITALS: BMI 31.4
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
[2024-07-10] MEDS: hydrOXYzine HCL 25 MG TABLET PO (17:40)
[2024-07-11 08:00] VITALS: BP 115/75; PULSE 86; RESP 18; TEMP 37; O2SAT 98
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
[2024-07-11] MEDS: DULoxetine HCl 30 MG CAPSULE.DR PO (09:00)
[2024-07-11] MEDS: Gabapentin 300 MG CAPSULE PO (09:00)
[2024-07-11] MEDS: Loratadine 10 MG TABLET PO (09:00)
[2024-07-11] MEDS: Lithium Carbonate 300 MG CAPSULE PO (09:00)
[2024-07-11] MEDS: Nicotine Polacrilex 2 MG GUM 4 MG BUCCAL ×4 (09:03→22:48)
[2024-07-11 09:09] LABS: Estimated Average Glucose 108 mg/dL; Hemoglobin A1C 118.4137 umol/L; Hemoglobin A1c % 5.4 % (<6.0); Total Hemoglobin (HGBA1C) 3347.7106 umol/L
[2024-07-11 09:17] LABS: Cholesterol 272 mg/dL (<200); HDL Cholesterol 54 mg/dL (>40); LDL Cholesterol Calculated 166 mg/dL (<100); Triglycerides 261 mg/dL (<150)
[2024-07-11] MEDS: hydrOXYzine HCL 25 MG TABLET PO ×2 (11:41→22:48)
[2024-07-11 20:00] VITALS: BP 114/74; PULSE 92; TEMP 36.3; O2SAT 98
[2024-07-11] MEDS: Lithium Carbonate ER 300 MG TABLET.ER 600 MG PO (22:43)
[2024-07-11] MEDS: Gabapentin 400 MG CAPSULE PO (22:44)
[2024-07-12 08:26] VITALS: BP 102/58; PULSE 84; RESP 16; TEMP 36.2; O2SAT 98
[2024-07-12] MEDS: DULoxetine HCl 30 MG CAPSULE.DR PO (09:02)
[2024-07-12] MEDS: Gabapentin 300 MG CAPSULE PO (09:02)
[2024-07-12] MEDS: Nicotine Polacrilex 2 MG GUM 4 MG BUCCAL ×5 (09:03→20:54)
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
[2024-07-12] MEDS: Acetaminophen 325 MG TABLET 650 MG PO ×2 (12:07→18:16)
[2024-07-12] MEDS: Magnesium Hydrox/Alum Hydrox 30 ML ORAL.SUSP PO (13:07)
[2024-07-12 20:00] VITALS: BP 128/83; PULSE 90; TEMP 36.1; O2SAT 99
[2024-07-12] MEDS: Gabapentin 400 MG CAPSULE PO (21:30)
[2024-07-12] MEDS: Lithium Carbonate ER 300 MG TABLET.ER 600 MG PO (21:30)
[2024-07-13] MEDS: Acetaminophen 325 MG TABLET 650 MG PO ×2 (04:32→12:57)
[2024-07-13] MEDS: Nicotine Polacrilex 2 MG GUM 4 MG BUCCAL ×7 (04:32→23:04)
[2024-07-13 08:05] VITALS: BP 117/72; PULSE 76; RESP 16; TEMP 36.6; O2SAT 98
[2024-07-13] MEDS: DULoxetine HCl 30 MG CAPSULE.DR PO (08:36)
[2024-07-13] MEDS: Gabapentin 300 MG CAPSULE PO (08:36)
[2024-07-13] MEDS: hydrOXYzine HCL 25 MG TABLET PO ×2 (10:16→20:53)
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
[2024-07-13 20:00] VITALS: BP 128/85; PULSE 74; RESP 16; TEMP 36.8; O2SAT 98
[2024-07-13] MEDS: Gabapentin 400 MG CAPSULE PO (20:53)
[2024-07-13] MEDS: Lithium Carbonate ER 300 MG TABLET.ER 600 MG PO (20:54)
[2024-07-13] MEDS: traZODone HCL 50 MG TABLET PO (23:04)
[2024-07-14] MEDS: Nicotine Polacrilex 2 MG GUM 4 MG BUCCAL ×4 (04:32→21:36)
[2024-07-14] MEDS: Acetaminophen 325 MG TABLET 650 MG PO ×2 (04:33→18:03)
[2024-07-14 08:00] VITALS: BP 115/69; PULSE 81; RESP 18; TEMP 36.9; O2SAT 98
[2024-07-14] MEDS: Fluticasone/Vilanterol 200/25 BLST.W.DEV 1 PUFF INHALE (09:17)
[2024-07-14] MEDS: Gabapentin 300 MG CAPSULE PO (09:17)
[2024-07-14] MEDS: DULoxetine HCl 30 MG CAPSULE.DR PO (09:17)
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
[2024-07-14 20:00] VITALS: RESP 16
[2024-07-14] MEDS: traZODone HCL 50 MG TABLET PO ×2 (21:36→23:44)
[2024-07-14] MEDS: Gabapentin 400 MG CAPSULE PO (21:36)
[2024-07-14] MEDS: Lithium Carbonate ER 300 MG TABLET.ER 600 MG PO (21:36)
[2024-07-15 09:03] VITALS: BP 122/71; PULSE 86; RESP 16; TEMP 37; O2SAT 98
[2024-07-15] MEDS: Gabapentin 300 MG CAPSULE PO (09:47)
[2024-07-15] MEDS: Dextroamphetamine/Amphetamine XR 5 MG CAP.ER.24H 15 MG PO (09:47)
[2024-07-15] MEDS: DULoxetine HCl 30 MG CAPSULE.DR PO (09:47)
[2024-07-15] MEDS: Nicotine Polacrilex 2 MG GUM 4 MG BUCCAL ×7 (09:48→23:47)
[2024-07-15] MEDS: Acetaminophen 325 MG TABLET 650 MG PO ×2 (11:37→19:03)
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
[2024-07-15] MEDS: hydrOXYzine HCL 25 MG TABLET PO ×2 (14:26→23:47)
[2024-07-15 20:00] VITALS: BP 138/85; PULSE 106; RESP 18; TEMP 37.3; O2SAT 99
[2024-07-15] MEDS: Gabapentin 400 MG CAPSULE PO (20:56)
[2024-07-15] MEDS: Lithium Carbonate ER 300 MG TABLET.ER 600 MG PO (20:56)
[2024-07-15] MEDS: traZODone HCL 50 MG TABLET PO ×2 (20:57→23:47)
[2024-07-16 08:43] VITALS: BP 131/63; PULSE 89; RESP 16; TEMP 36.9; O2SAT 98
[2024-07-16] MEDS: Acetaminophen 325 MG TABLET 650 MG PO ×3 (09:00→22:42)
[2024-07-16] MEDS: Dextroamphetamine/Amphetamine XR 5 MG CAP.ER.24H 15 MG PO (09:00)
[2024-07-16] MEDS: DULoxetine HCl 30 MG CAPSULE.DR PO (09:00)
[2024-07-16] MEDS: Gabapentin 300 MG CAPSULE PO (09:01)
[2024-07-16] MEDS: Nicotine Polacrilex 2 MG GUM 4 MG BUCCAL ×7 (09:01→23:57)
[2024-07-16 09:06] LABS: Anion Gap 13 (12-20); Carbon Dioxide 23 mmol/L (22-29); Chloride 106 mmol/L (96-108); Potassium 4.2 mmol/L (3.3-5.1); Sodium 138 mmol/L (135-145)
[2024-07-16] MEDS: Fluticasone/Vilanterol 200/25 BLST.W.DEV 1 PUFF INHALE (09:09)
[2024-07-16] MEDS: Fluticasone Propionate Nasal 16 GM SPRAY 1 SPRAY NOSTRIL-B (09:09)
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
[2024-07-16] MEDS: hydrOXYzine HCL 25 MG TABLET PO ×2 (16:39→22:41)
[2024-07-16 20:04] VITALS: BP 130/91; PULSE 98; RESP 16; TEMP 36.8; O2SAT 98
[2024-07-16] MEDS: Lithium Carbonate ER 300 MG TABLET.ER 600 MG PO (20:07)
[2024-07-16] MEDS: Gabapentin 400 MG CAPSULE PO (20:08)
[2024-07-16] MEDS: traZODone HCL 50 MG TABLET PO ×2 (20:08→22:42)
[2024-07-17] MEDS: Nicotine Polacrilex 2 MG GUM 4 MG BUCCAL ×7 (02:42→23:58)
[2024-07-17 08:00] VITALS: BP 114/65; PULSE 88; RESP 18; TEMP 36.8; O2SAT 99
[2024-07-17] MEDS: Dextroamphetamine/Amphetamine XR 5 MG CAP.ER.24H 15 MG PO (08:11)
[2024-07-17] MEDS: DULoxetine HCl 30 MG CAPSULE.DR PO (08:11)
[2024-07-17] MEDS: Fluticasone Propionate Nasal 16 GM SPRAY 1 SPRAY NOSTRIL-B (08:11)
[2024-07-17] MEDS: Gabapentin 300 MG CAPSULE PO (08:11)
[2024-07-17] MEDS: Fluticasone/Vilanterol 200/25 BLST.W.DEV 1 PUFF INHALE (08:11)
[2024-07-17] MEDS: hydrOXYzine HCL 25 MG TABLET PO ×3 (09:23→23:59)
[2024-07-17] MEDS: Magnesium Hydrox/Alum Hydrox 30 ML ORAL.SUSP PO (09:24)
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
[2024-07-17 11:05] LABS: Blood Urea Nitrogen 14 mg/dL (9-16); Creatinine Clr Calc Pharmacy 81.2; Estimated Glomerular Filt Rate > 60
[2024-07-17] MEDS: Acetaminophen 325 MG TABLET 650 MG PO ×2 (11:31→18:09)
[2024-07-17 19:39] VITALS: BP 139/95; PULSE 112; RESP 17; TEMP 37.3; O2SAT 96
[2024-07-17] MEDS: Lithium Carbonate ER 300 MG TABLET.ER 600 MG PO (20:42)
[2024-07-17] MEDS: Gabapentin 400 MG CAPSULE PO (20:42)
[2024-07-17] MEDS: traZODone HCL 50 MG TABLET PO ×2 (20:42→22:19)
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
[2024-07-18] MEDS: Acetaminophen 325 MG TABLET 650 MG PO ×2 (00:25→08:11)
[2024-07-18] MEDS: Nicotine Polacrilex 2 MG GUM 4 MG BUCCAL ×4 (00:29→10:22)
[2024-07-18 08:00] VITALS: BP 124/63; PULSE 93; RESP 17; TEMP 36.8; O2SAT 100
[2024-07-18] MEDS: Fluticasone Propionate Nasal 16 GM SPRAY 1 SPRAY NOSTRIL-B (08:11)
[2024-07-18] MEDS: Dextroamphetamine/Amphetamine XR 5 MG CAP.ER.24H 15 MG PO (08:11)
[2024-07-18] MEDS: Fluticasone/Vilanterol 200/25 BLST.W.DEV 1 PUFF INHALE (08:11)
[2024-07-18] MEDS: DULoxetine HCl 30 MG CAPSULE.DR PO (08:11)
[2024-07-18] MEDS: Gabapentin 300 MG CAPSULE PO (08:14)
[2024-07-18] MEDS: hydrOXYzine HCL 25 MG TABLET PO (08:21)
[2024-07-18] MEDS: Magnesium Hydrox/Alum Hydrox 30 ML ORAL.SUSP PO (10:22)
== END 2024-07-18 11:27 | disposition home or self-care (01) | DRG 885 ==
LOC: HO.ED 07-10 07:04 → HO.PM5 07-10 13:22
PROVIDERS: Emergency Medicine; Physician Assistant Medical; Admitting Provider Psychiatry & Neurology Psychiatry; Emergency Provider Emergency Medicine Emergency Medical Services; Visit Provider Psychiatry & Neurology Psychiatry
DX: F31.81 Bipolar II disorder (principal); R45.851 Suicidal ideations; F19.20 Other psychoactive substance dependence, uncomplicated; G47.419 Narcolepsy without cataplexy; F43.10 Post-traumatic stress disorder, unspecified; G25.81 Restless legs syndrome; F90.9 Attention-deficit hyperactivity disorder, unspecified type; Z20.822 Contact with and (suspected) exposure to COVID-19; Z87.891 Personal history of nicotine dependence; Z79.51 Long term (current) use of inhaled steroids; Z79.899 Other long term (current) drug therapy
CPT/HCPCS: 0241U; 36415; 80051; 80053; 80061; 80143; 80178; 80179; 80307; 81003; 81025; 82565; 83036; 83735; 84443; 84484; 84520; 84702; 85025; 93005; 99285; S9485

== ENCOUNTER → 2024-07-08 14:29 | Outpatient (BNV) | payer OTHER, SELFPAY | PROVIDERS: Emergency Provider Emergency Medicine; Visit Provider Internal Medicine Cardiovascular Disease | DX: R00.0 Tachycardia, unspecified (principal); R94.31 Abnormal electrocardiogram [ECG] [EKG] | CPT/HCPCS: 93010 ==

== ENCOUNTER → 2024-07-10 13:01 | Outpatient (BNV) | payer OTHER, SELFPAY | PROVIDERS: Admitting Provider Psychiatry & Neurology Psychiatry; Emergency Provider Emergency Medicine Emergency Medical Services; Visit Provider Psychiatry & Neurology Psychiatry | DX: F31.81 Bipolar II disorder (principal); F19.20 Other psychoactive substance dependence, uncomplicated; F90.9 Attention-deficit hyperactivity disorder, unspecified type; G47.419 Narcolepsy without cataplexy | CPT/HCPCS: 90792; 99231; 99232; 99239 ==